=== PATIENT | female | born 1955 | race Caucasian/White ===

== ENCOUNTER → 2022-10-12 | Outpatient (CLI) | payer MEDICARE, BC, SELFPAY ==
--- NOTE | 2022-10-12 07:50 | MRI_ITS ---
We are attempting to reach an attending provider to discuss findings. An addendum with communication details will be sent when the communication is complete. EXAM: MR HEAD WITHOUT INTRAVENOUS CONTRAST CLINICAL INDICATION: R VISUAL FIELD DEFECT, R/O OLD CVA TECHNIQUE: Multiplanar and multisequence MR images of the brain were obtained without intravenous contrast. This report was created using Remerge report generation technology. COMPARISON: None. FINDINGS: BRAIN AND EXTRA-AXIAL SPACES: Small diffusion restriction in the right inferior occipital pole cortex is also visible on the T2 FLAIR sequence. This is suspicious for subacute ischemic infarct. Large old cortical based ischemic infarct with cystic encephalomalacia along the left posterior temporal lobe extending to the left lateral occipitotemporal lobe , left angular gyrus and a small portion of the left supramarginal gyrus. No intra- or extra-axial hemorrhage. No intracranial mass or mass effect. Posterior fossa structures are unremarkable. Basal cisterns are patent. SELLA: Unremarkable. Normal sella turcica, pituitary gland, infundibular stalk, optic chiasm and hypothalamus. AUDITORY SYSTEM: Unremarkable. The internal auditory canals are patent. BONES/JOINTS: Unremarkable. No discrete lytic or blastic abnormalities. SINUSES: Unremarkable as visualized. Clear. MASTOID AIR CELLS: Unremarkable as visualized. Clear. ORBITS: Unremarkable as visualized. Both globes, extraocular muscles, optic nerves and retrobulbar fat appear unremarkable. VASCULATURE: Unremarkable as visualized. Normal flow voids in the major intracranial circulation. MRI/Brain without Contrast IMPRESSION: 1. Small subacute ischemic infarct in the right inferior occipital pole. 2. Large old cortical based ischemic infarct with cystic encephalomalacia along the left posterior temporal lobe, left lateral occipitotemporal lobe, left angular gyrus and a small portion of the left supramarginal gyrus. This old ischemic infarct involves the optic radiation of the left intracranial visual pathway. Electronically Signed: Baldomero Keita MD at 9:44 EST ,
== END | disposition home or self-care (01) ==
LOC: MRI 07:47
PROVIDERS: PCP Family Medicine; Referring Provider Ophthalmology; Visit Provider Ophthalmology
DX: H53.461 Homonymous bilateral field defects, right side (principal)
CPT/HCPCS: 70551

== ENCOUNTER 2023-07-08 10:15 | Emergency (ER) | payer MEDICARE, BC, SELFPAY ==
[2023-07-08 10:16] VITALS: BP 146/78; PULSE 66; RESP 18; TEMP 36.2; O2SAT 100
--- NOTE | 2023-07-08 12:00 | CT_ITS ---
STUDY: CT BRAIN WITHOUT CONTRAST REASON FOR EXAM: Female, 68 years old. Head injury. History of epilepsy. RADIATION DOSAGE (If Supplied By Facility): CTDIvol = ( 47.06 ) mGy, DLP = ( 837.39 ) mGycm TECHNIQUE: Transaxial CT imaging of the brain was performed without administration of intravenous contrast material. Individualized dose optimization techniques were used for this CT. COMPARISON: Comparison is made with prior MRI of the brain dated October 12, 2022. FINDINGS: Normal soft tissue structures. There is hyperostosis frontalis internus. There is mild cerebral atrophy with widening of the extra-axial spaces and ventricular dilatation. Stable encephalomalacia in the left posterior parieto-occipital lobe. Normal basal ganglia and thalami. Normal brainstem. There is mild cerebellar atrophy. There is no intracranial hemorrhage. There are no findings of an acute ischemic infarction. Normal visualized paranasal sinuses. CT/Brain/Head without Contrast IMPRESSION: Chronic involutional changes of the brain. Stable encephalomalacia of the left posterior parieto-occipital lobe. Electronically Signed: David Todd MD at 12:58 EDT ,
--- NOTE | 2023-07-08 12:10 | ED.VIS.FALL ---
HPI HPI - Fall History of Present Illness Chief Complaint: Fall Occured/Mechanism Occurred: Today Mechanism/Context: Yes same level fall and Yes slip Pain/Injury Pain Location: head Quality of Pain: Aching Worsened by: Nothing Relieved by: Nothing Associated Symptoms Associated Symptoms: Negative for Parasthesias, Weakness, Loss of function, Inability to ambulate, Loss of consciousness or Amnesia Narrative Narrative: Patient presents with head injury that occurred today. Patient slipped getting out of the shower today and hit her head. Patient denies any loss of consciousness. Patient states she hit the left side of her head on the top. Patient takes aspirin but does not take any anticoagulants. Patient states her last tetanus was 1 to 2 years ago. Patient denies any visual changes. Patient denies any nausea or vomiting. Patient denies any neck or back pain. Patient denies any other injuries. Tetanus Immunization: <5 years [facility] Medical History (Updated 07/08/23 @ 14:[address] Anderson Vences, ) Seizures Sleep apnea Stroke/cerebrovascular accident Home Medications ascorbic acid-ascorbate sodium (vitamin C) 500 mg chewable tablet 500 mg PO BID 05/01/17 [History Last Taken 05/01/17 17:00] divalproex 500 mg tablet,extended release 24 hr 1,000 mg PO BID 05/01/17 [History Last Taken 05/01/17 17:00] rmkxqkqpqscr-Vb-mnjr-minerals (Multiple Vitamin, Womens tablet) 1 ea PO DAILY 05/01/17 [History Last Taken 05/01/17] oxcarbazepine 600 mg tablet (Trileptal) 900 mg PO BID 05/01/17 [History Last Taken 05/01/17 17:00] cefepime 1 gram solution for injection 2 g IV Q12H ##20 05/04/17 [Rx Last Taken Unknown] ciprofloxacin HCl 500 mg tablet 750 mg (1.5 x 500 mg) PO BID ##20 05/04/17 [Rx Last Taken Unknown] aspirin 81 mg chewable tablet (Nazia Chewable Low Dose Aspirin) 1 tab PO DAILY 07/08/23 [History Last Taken Unknown] rosuvastatin 10 mg tablet 10 mg PO DAILY 07/08/23 [History Last Taken Unknown] Allergy/AdvReac Type Severity Reaction Status Date / Time No Known Allergies Allergy Verified 07/08/23 10:20 Social History Smoking Status: Never smoker ROS ROS ED Constitutional Constitutional ED: Denies chills or fever(s) Eyes Eyes: Denies blurry vision or change in vision ENT ENT ED: Denies rhinorrhea or sore throat Cardiovascular Cardiovascular: Denies chest pain or palpitations Respiratory/Chest Respiratory/Chest: Denies cough or dyspnea Gastrointestinal Gastrointestinal: Denies nausea or vomiting Genitourinary Genitourinary ED: Denies dysuria or hematuria Musculoskeletal Musculoskeletal: Denies back pain or neck pain Integumentary Denies abscess or rash Neurologic Neurologic: Reports headache(s); Denies weakness Allergic/Immunologic Allergic/Immunologic ED: Denies mouth swelling or urticaria EXAM Physical Exam Const Vital Signs: 07/08/23 10:16 07/08/23 12:16 07/08/23 12:38 Temperature 97.1 F L Temperature Source Temporal Pulse Rate 66 Respiratory Rate 18 18 Respiratory Effort Normal Respiratory Pattern Normal Blood Pressure 146/78 H Blood Pressure Mean 100 Pulse Ox 100 Oxygen Delivery Method Room Air 07/08/23 14:08 Temperature Temperature Source Pulse Rate Respiratory Rate 16 Respiratory Effort Respiratory Pattern Blood Pressure 164/61 H Blood Pressure Mean 95 Pulse Ox Oxygen Delivery Method Positive well nourished and well developed General Appearance ED: well developed and NAD HEENT HEENT Narrative: There is a 11.5 cm full-thickness curvilinear laceration over the left parietal scalp. There is moderate gapping of the wound margins. There is no active bleeding noted. There is no bony crepitance or step-off. There are no foreign bodies noted. trauma Eyes PERRL and EOMs intact bilaterally Neck full ROM and supple Chest Wall inspection of chest normal and palpation of chest normal Resp normal respiratory effort and clear to auscultation bilaterally Cardio regular rate and regular rhythm GI non-tender Palpation: soft Extremity Extremity Narrative: There is mild tenderness over the lateral aspect of the right mid thigh. There is no edema or ecchymosis. There is no bony crepitance or step-off. There is good range of motion of the upper and lower extremities bilaterally. Strength is 5/5 bilaterally in the upper and lower extremities. There are no sensory deficits noted. Neuro oriented x3, CN's II-XII intact bilaterally, moves all extremities, no focal motor deficits and no sensory deficits noted Sensorium / Orientation: alert Motor Exam: strength 5/5 throughout Psych mental status grossly normal MDM MDM MDM Narrative Medical decision making narrative: Differential diagnosis includes intracranial bleeding, concussion, closed head injury, and scalp laceration. CT scan of the brain will be obtained to assess for intracranial bleeding. Patient and family are concerned that patient has disruption of her left knee prosthesis and would like to have that x-rayed. X-rays will be obtained to assess for fracture and displacement of the prosthetic parts of her total knee replacement. Radiography Diagnostic Testing: Clinical Impression(s) from Imaging Studies Brain CT 07/08/23 12:00 IMPRESSION: Chronic involutional changes of the brain. Stable encephalomalacia of the left posterior parieto-occipital lobe. Electronically Signed: David Todd MD at 12:58 EDT , Knee X-Ray 07/08/23 12:45 IMPRESSION: Status post total knee replacement. There is good alignment. Soft tissue swelling. Electronically Signed: David Todd MD at 13:02 EDT , CT scan of the brain was obtained. There are chronic involutional changes noted. There is no acute intracranial bleeding noted. This was interpreted by the radiologist and was also independently reviewed by myself. X-rays of the left knee were obtained. There are 4 views. On my independent interpretation, there is no acute fracture or dislocation. There is no dislocation of the prosthesis. Radiologist also interpreted the x-rays and agrees. Treatment and Re-Evaluation Narrative: Patient was advised of her findings. The scalp wound was cleaned and irrigated with copious amounts of normal saline. The wound was anesthetized with 1% lidocaine with epinephrine locally. The wound was explored. There were no foreign bodies. There is no skull fracture noted. The wound was closed with lety. Patient tolerated procedure well. Dressing was applied. Patient was given head injury instructions. Patient was instructed to ice and elevate the left knee. Patient was instructed to take Tylenol as needed for pain. Patient was instructed to follow-up with her primary care physician in 5 to 7 days. Patient understood and was agreeable with the plan. All questions were answered. Procedures Lacerations Left parietal scalp: Length: 11.5 cm Depth: Sub Q Shape: Linear Prep: Sterile Conditions and Chlorhexadine Laceration repair: Irrigated, Lidocaine with epi, Local and Wound explored Irrigated (ml): 100 Number of Sutures/[place]: 24 Suture Information: - (Lety) Discharge Plan Triage Chief Complaint: Fall ED Provider: Anderson Vences Dx/Rx/DC Orders Clinical Impression: Closed head injury, Contusion of left knee, initial encounter, Laceration of scalp Instructions: ED Head Injury (Adult), ED Laceration Scalp Stitches or [place] Prescriptions: No Action divalproex 500 MG tablet extended release 24 hr 1,000 mg PO BID Rx Instructions: takes at 0500 and 1700 every day oxcarbazepine [Trileptal] 600 MG tablet 900 mg PO BID Rx Instructions: takes at 0500 and 1700 every day Multiple Vitamin, Womens 1 EACH tablet 1 ea PO DAILY ascorbic acid-ascorbate sodium 500 MG tablet,chewable 500 mg PO BID cefepime 1 GM/10 ML recon soln 2 g IV Q12H Qty: 20 0RF Rx Instructions: DX: Pseudomonas L knee wound infxn w/new L TKR Sed rate, CBC, CRP and BMP weekly starting May [address] Holland, please routine Midline flushing and dressings ciprofloxacin HCl 500 MG tablet 750 mg PO BID Qty: 20 0RF rosuvastatin 10 mg tablet 10 mg PO DAILY Patient Comments: TAKE 1 TABLET BY MOUTH EVERYDAY AT BEDTIME aspirin [Nazia Chewable Aspirin] 81 mg tablet,chewable 1 tab PO DAILY Primary Care Provider: Red Peterson Referrals: Red Peterson MD [Primary Care Provider] - 7 Days for suture removal Disposition Disposition: Home, Self Care
[2023-07-08 12:16] VITALS: RESP 18
[2023-07-08 12:20] VITALS: BMI 42.1
--- NOTE | 2023-07-08 12:45 | RAD_ITS ---
STUDY: X-RAY - LEFT KNEE REASON FOR EXAM: Female, 68 years old. Injury/Pain TECHNIQUE: 4 view(s) of the knee. COMPARISON: Comparison is dated May 01, 2017. FINDINGS: Normal visualized distal femur. Normal visualized proximal tibia and fibula. Normal proximal tibiofibular articulation. Status post total knee replacement. There is good alignment. Soft tissue swelling. RAD/Knee 4 or More Views IMPRESSION: Status post total knee replacement. There is good alignment. Soft tissue swelling. Electronically Signed: David Todd MD at 13:02 EDT ,
[2023-07-08] MEDS: Acetaminophen 500 MG Tablet 1000 MG PO (14:01)
[2023-07-08 14:08] VITALS: BP 164/61; RESP 16
[2023-07-08] MEDS: Lidocaine 1% /Epi 1:100 (20ml) 20 ML Vial INFILT (16:36)
== END 2023-07-08 16:40 | disposition home or self-care (01) ==
PROVIDERS: Emergency Provider Emergency Medicine; PCP Family Medicine; Visit Provider Emergency Medicine
DX: S01.01XA Laceration without foreign body of scalp, initial encounter (principal); S80.02XA Contusion of left knee, initial encounter; W01.10XA Fall on same level from slipping, tripping and stumbling with subsequent striking against unspecified object, initial encounter; Z96.652 Presence of left artificial knee joint; Z79.82 Long term (current) use of aspirin; Z86.73 Personal history of transient ischemic attack (TIA), and cerebral infarction without residual deficits
CPT/HCPCS: 12004; 70450; 73564; 99284

== ENCOUNTER → 2023-09-03 | Outpatient (CLI) | payer MEDICARE, BC, SELFPAY ==
--- NOTE | 2023-09-03 08:02 | MRI_ITS ---
STUDY: MRI BRAIN WITHOUT CONTRAST REASON FOR EXAM: Female, 68 years old. MEMORY LOSS, ALTERED MENTAL STATUS, COGNITIVE DECLINE, H/O PRIOR CVA TECHNIQUE: Standardized multiplanar fat and water weighted pulse sequences were obtained. COMPARISON: MR 10/12/2022. HEMISPHERES, CEREBELLUM AND BRAINSTEM: There is an old left temporal occipital infarct with cystic encephalomalacia measuring 7.39 cm AP by 3.1 cm transverse by 5.29 cm craniocaudal. There is underlying moderate cortical and central atrophy. Extending medially there is noncystic encephalomalacia extending to the atrium of the left lateral ventricle. There is moderate chronic microvascular ischemic change in the periventricular white matter. There is moderate cortical and central atrophy. There is mild cerebellar atrophy. The previously visualized small subacute ischemic infarct in the inferior right occipital lobe has evolved and are normal manner. There is a focus of encephalomalacia seen at this site measuring 2 cm AP by 0.8 cm transverse. PITUITARY: Infundibulum and pituitary have normal configuration. Midline structures appear normal. VESSELS: 1. There are normal flow voids noted in the great vessels at the skull base ORBITS AND PARANASAL SINUSES: 1. Both globes, extraocular muscles, optic nerves and retrobulbar fat appear unremarkable. 2. Paranasal sinuses are clear. BONY ELEMENTS: Bony elements of the cranial vault, facial skeleton and skull base have normal appearance. SCALP AND SOFT TISSUES: Normal appearance of the soft tissues of the scalp and the visualized face OTHER: None MRI/Brain without Contrast IMPRESSION: Normal evolution of the inferior right occipital infarct which now appears chronic. This measures 2 cm AP by 0.8 cm transverse. Large left temporal occipital infarct which is chronic with cystic encephalomalacia malacia and noncystic encephalomalacia extending medially. Moderate chronic microvascular ischemic change. Moderate cortical and central atrophy. Electronically Signed: Red Lang MD at 9:21 EDT ,
== END | disposition home or self-care (01) ==
LOC: MRI 07:46
PROVIDERS: PCP Family Medicine; Referring Provider Psychiatry & Neurology Clinical Neurophysiology; Visit Provider Psychiatry & Neurology Clinical Neurophysiology
DX: R41.82 Altered mental status, unspecified (principal)
CPT/HCPCS: 70551

== ENCOUNTER 2025-02-14 11:41 | Inpatient (IN) | payer MEDICARE, SELFPAY ==
[2025-02-14] VITALS (9 sets, daily range): BP systolic 117–166; BP diastolic 50–102; PULSE 72–95; RESP 13–18; TEMP 36.2–37.7; O2SAT 94–100; BMI 39.9; BMI 38.9
--- NOTE | 2025-02-14 11:52 | EX.ED.DYSGE1 ---
HPI History of Present Illness Chief Complaint: Confusion [facility] Medical History (Updated 02/14/25 @ 13:[address] Anabell Baum MD) Seizures Stroke/cerebrovascular accident Sleep apnea Home Medications ?Medication ?Instructions ?Recorded ?Last Taken ?Type divalproex 500 mg tablet,extended 1,000 mg PO BID 05/01/17 02/14/25 History release 24 hr oxcarbazepine 600 mg tablet 900 mg PO BID 05/01/17 02/14/25 History (Trileptal) aspirin 81 mg chewable tablet 1 tab PO DAILY 07/08/23 02/14/25 History (Nazia Chewable Low Dose Aspirin) rosuvastatin 10 mg tablet 10 mg PO QHS 07/08/23 02/13/25 History Allergy/AdvReac Type Severity Reaction Status Date / Time No Known Allergies Allergy Verified 02/14/25 12:23 Social History (Updated 02/14/25 @ 11:46 by Clarice Bass) household members: spouse housing: house Smoking Status: Never smoker EXAM Physical Exam Const Vital Signs: 02/14/25 11:42 02/14/25 11:45 02/14/25 12:30 Temperature 99.5 F H 99.5 F H 99.3 F H Temperature Source Oral Oral Oral Pulse Rate 80 80 77 Respiratory Rate 13 13 15 Blood Pressure 117/90 H 117/90 H 140/50 H Blood Pressure Mean 99 99 80 Pulse Ox 94 94 94 Oxygen Delivery Method Room Air Room Air Room Air 02/14/25 13:00 Temperature 99.0 F Temperature Source Oral Pulse Rate 76 Respiratory Rate 13 Blood Pressure 137/66 H Blood Pressure Mean 89 Pulse Ox 95 Oxygen Delivery Method Room Air MDM MDM MDM Narrative Medical decision making narrative: HISTORY OF PRESENT ILLNESS: 70-year-old female presents with concern for altered mental status. Per EMS called secondary to confusion and cold-like symptoms. Also notes cough. Per patient became confused this morning after breakfast. No report of seizure or falls. No report recent illnesses. notes he was just getting over a cold and thinks he may have a cold. There is no reported chest pain, abdominal pain, vomiting or diarrhea. No trouble urinating reported. REVIEW OF SYSTEMS: Unable to obtain reliable review of system secondary to patient's altered mental status PHYSICAL EXAM: Nursing triage notes reviewed, Vital signs reviewed Constitutional: please see mdm HENT: MMM Eyes: Pupils equal round and reactive to light, Extraocular muscles intact Neck: No stridor, no JVD, full neck ROM Lungs: Clear to auscultation, No wheezing or rales. No increased work of breathing, no conversational dyspnea, no accessory muscle use, no nasal flaring. No respiratory distress noted Heart: Regular rate and rhythm, No murmurs, No rubs and No gallops, 2+ distal pulses (radial, femoral, posterior tibial) in all extremities Abdomen: Soft, there is no tenderness, rigidity, rebound or guarding, no obvious peritoneal signs, no palpable pulsatile abdominal masses, no auscultated abdominal bruit : No CVAT Extremities: No edema Neuro: Alert, oriented to person but not place or time of my exam, no lateralizing focal deficits, cranial nerves II through XII intact, intact strength in all present extremities. Intact sensation to light touch in all present extremities, 2+ reflexes bilateral patella tendons. Skin: No rash or lesions noted MEDICAL DECISION MAKING: Chief Complaint: Altered mental status External records reviewed: Reviewed prior imaging studies: Reviewed brain MRI from 2022 which showed inferior right occipital infarct Factors affecting care: CVA, seizures Social determinants of health: none History obtained from others: EMS, Consults: Internal Medicine (Dr. Baum) [facility] Narrative: The patient was initially borderline febrile with a temperature 99.5 saturating 94% room air otherwise hemodynamically stable. Exam with AMS. Patient appeared diffuse encephalopathic. No focal neurologic deficits. No sign of trauma. I considered the following differential diagnosis: ICH, anemia, electro disturbance, UTI ALL IMAGES (IF OBTAINED) HAVE BEEN PERSONALLY REVIEWED AND INTERPRETED BY MYSELF. EKG with normal sinus rhythm rate of 72, normal axis, no intervals, no STEMI CT scan of the head shows no evidence of obvious intracranial abnormality CBC without leukocytosis, no anemia or thrombocytopenia BMP without evidence of significant electrolyte abnormalities, no anion gap, no acute kidney injury. Urinalysis shows no evidence of urinary inflammation suggestive of UTI COVID/RSV/flu test positive for COVID-19 the likely etiology of the patient's altered mental status and fever I have personally reviewed the patient's chest x-ray. Chest x-ray is unremarkable for pulmonary edema, pneumothorax, pneumonia or focal cardiopulmonary abnormality. Initial lactate elevated consistent with endorgan hypoperfusion. Will give 2 L normal saline bolus and repeat lactate Initially gave Tylenol for fever which improved the patient's temperature Given altered mental status and signs of COVID-19 admit the patient. Discussed with hospitalist. The patient and/or family, caregivers express understanding. The patient and/or family, caregivers agrees with the plan. Shared decision making: I will have a discussion with the patient and or visitors regarding risk/benefits of further testing or admission. They will be made aware of of the risk/benefits inherent in this decision they will be given the opportunity to voice understanding. Total critical care time today provided was at least 0 minutes. This excludes separately billable procedures. Critical care time (if documented) is secondary to the patient having high probability of clinically significant/life threatening deterioration in the patient's condition which required my urgent intervention. Impression: 1. COVID-19 2. Altered mental status Dispo: Admit This note was generated with [employer] dictation software. It may contain incorrect words, spelling, and punctuation that were not noted in review of the chart prior to signing. Lab Data Labs: Laboratory Results - last 24 hr 02/14/25 02/14/25 11:45 12:09 WBC 8.1 RBC 3.91 L Hgb 12.6 Hct 38.1 MCV 97.4 MCH 32.2 H MCHC 33.1 RDW Std Deviation 51.2 H RDW Coeff of Margie 14.5 Plt Count 347 MPV 9.4 Immature Gran % (Auto) 0.500 Neut % (Auto) 72.5 H Lymph % (Auto) 13.2 L [place] % (Auto) 13.2 H Eos % (Auto) 0.4 Baso % (Auto) 0.2 Absolute Neuts (auto) 5.9 Absolute Lymphs (auto) 1.07 Nucleated RBC % 0 Sodium 136 Potassium 4.0 Chloride 101 Carbon Dioxide 23.3 Anion Gap 12 BUN 15 Creatinine 0.50 L Estim Creat Clear Calc 78.56 Est GFR (MDRD) Non-Af 102 BUN/Creatinine Ratio 30.9 H Glucose 130 H Lactic Acid 2.7 H* Calcium 9.2 Total Bilirubin 0.31 Direct Bilirubin 0.17 AST 29 ALT 10 Alkaline Phosphatase 72 Total Protein 6.8 Albumin 3.5 Globulin 3.3 Urine Color Yellow Urine Clarity Sl. Cloudy Urine pH 5.0 Ur Specific [place] 1.020 Urine Protein 100 H Urine Glucose (UA) Normal Urine Ketones 5 H Urine Occult Blood 10 H Urine Nitrite Negative Urine Bilirubin Negative Urine Urobilinogen 1 H Ur Leukocyte Esterase 25 H Urine RBC 0 SEEN Urine WBC 0-5 SEEN Ur Squamous Epith Cells 0 SEEN Urine Bacteria 0 SEEN Urine Mucus 3+ Radiography Diagnostic Testing: Clinical Impression(s) from Imaging Studies Brain CT 02/14/25 12:40 IMPRESSION: Stable examination. No acute abnormality is seen. Reading Location: [facility]--1 Chest X-Ray 02/14/25 12:40 IMPRESSION: No Acute Findings. Reading Location: [facility]1 Discharge Plan Disposition Disposition: Acute Care Hospital [facility] Discharge Date/Time: 02/14/25 13:42
--- NOTE | 2025-02-14 11:58 | EKG12_ITS ---
Test Reason : Blood Pressure : */* mmHG Vent. Rate : 72 BPM Atrial Rate : 72 BPM P-R Int : 172 ms QRS Dur : 86 ms QT Int : 402 ms P-R-T Axes : 67 48 78 degrees QTcB Int : 440 ms Normal sinus rhythm Nonspecific ST and T wave abnormality Abnormal ECG Confirmed by MARLO SKINNER, LARON ([id number]), editor newspaper VEGA SNYDER ([id number]) on 02/15/2025 8:00:11 AM Referred By: Alejandro Wilkins Confirmed By: LARON SELLERS MD
[2025-02-14 12:10] LABS: Absolute Lymphocyte Count 1.07 X10^3/uL (0.83-4.51); Absolute Neutrophil Count 5.9 X10^3/uL (2.0-7.7); Basophil# 0.02 X10^3/uL; Basophil% 0.2 % (0-1); Eosinophil# 0.03 X10^3/uL; Eosinophils% 0.4 % (0-5); Hematocrit 38.1 % (37-47); Hemoglobin 12.6 g/dL (12.0-15.0); Lymphocyte # 1.07 X10^3/ul (0.83-4.51); Lymphocyte % 13.2 % (19-41); Mean Corp Hgb Conc 33.1 g/dL (32-36); Mean Corpuscular Hgb 32.2 pg (27.0-32.0); Mean Corpuscular Volume 97.4 fL (81-99); Mean Platelet Vol. 9.4 fl (6.2-12.0); Monocyte# 1.07 X10^3/uL; Monocyte% 13.2 % (0-10); NRBC Flagged by Analyzer 0 % (0-5); Neutrophil % 72.5 % (47-70); Platelet Count 347 K/mm3 (150-450); RBC Distribution Width CV 14.5 % (11.6-14.6); RBC Distribution Width SD 51.2 fl (35.1-43.9); Red Blood Count 3.91 M/mm3 (4.2-5.4); White Blood Count 8.1 K/mm3 (4.4-11.0)
[2025-02-14 12:14] LABS: Bacteria 0 SEEN /hpf (None Seen); Squamous Epithelial Cells - UA 0 SEEN /hpf (5-10)
[2025-02-14 12:18] LABS: Color, Urine Yellow (Yellow); Glucose, Dipstick Normal (Normal); Ketone-Dipstick 5 mg/dl (Negative); Leukocyte Esterase-Dipstick 25 /ul (Negative); Nitrite-Dipstick Negative (Negative); Occult Blood-Urine 10 /ul (Negative); Protein-Dipstick 100 mg/dl (Negative); Urine Bilirubin Dipstick Negative (Negative); Urine Clarity Sl. Cloudy (Clear); Urine Urobilinogen 1 mg/dl (Normal)
[2025-02-14] MEDS: Acetaminophen 325 MG Tablet 650 MG PO ×2 (12:19→21:47)
[2025-02-14] MEDS: 0.9% Normal Saline (500mL Bag) 500 ML 1000 ML IV (12:19)
[2025-02-14 12:26] LABS: Mucous, Urine 3+ /hpf (<or=2+)
[2025-02-14 12:27] LABS: Red Blood Cells-Urine 0 SEEN /hpf (0-5); White Blood Cells 0-5 SEEN /hpf (0-5)
[2025-02-14 12:31] LABS: AST(SGOT) 29 U/L (<=31); Alanine Aminotransfer ALT/SGPT 10 U/L (<=34); Albumin, Serum 3.5 g/dL (3.4-4.8); Alkaline Phosphatase 72 U/L (35-104); Anion Gap 12 (5-15); BUN 15 mg/dL (4-19); BUN/Creat Ratio 30.9 RATIO (10-20); Bilirubin, Direct 0.17 mg/dL (0.00-0.30); Calcium,Total 9.2 mg/dL (7.6-11.0); Carbon Dioxide 23.3 mmol/L (21.0-32.0); Chloride 101 mmol/L (98-108); EST Glomerular Filtration Rate 102 (>60); Estimated Creatinine Clearance 78.56 ml/min (50-250); Globulin 3.3 g/dL (2.2-4.2); Glucose 130 mg/dL (70-99); Protein, Total 6.8 g/dL (5.9-8.4); Sodium Level 136 mmol/L (133-145); Total Bilirubin 0.31 mg/dL (0.00-1.30)
--- NOTE | 2025-02-14 12:40 | RAD_ITS ---
PROCEDURE: CHEST 1 VIEW (PORTABLE) 02/14/2025 REASON FOR EXAM: COUGH TECHNIQUE: Frontal view of the chest. COMPARISON: None FINDINGS: Hardware: EKG electrodes are seen. Heart: The heart size is normal. Lungs: The lungs are clear. Bones: Degenerative changes are identified within the thoracic spine. RAD/Chest 1 View (Portable) IMPRESSION: No Acute Findings. Reading Location: [place] [id number]
--- NOTE | 2025-02-14 12:40 | CT_ITS ---
PROCEDURE: BRAIN/HEAD WITHOUT CONTRAST 02/14/2025 REASON FOR EXAM: AMS History of seizures. Confusion. TECHNIQUE: Multiple axial tomographic images were obtained without intravenous contrast administration. Coronal and sagittal reconstruction was obtained as well. COMPARISON: Comparison is made with prior study July 08, 2023. FINDINGS: Mild cerebral atrophy. There is evidence of atrophy of the left cerebellum. Stable encephalomalacia in the posterior left parietal occipital lobes. No new acute abnormality is seen. Hyperostosis frontalis interna. CT/Brain/Head without Contrast IMPRESSION: Stable examination. No acute abnormality is seen. [facility]
--- NOTE | 2025-02-14 13:07 | PCM.HP.STD ---
HPI - General General Date of Admission: 02/14/25 Date of Service: 02/14/25 Chief Complaint: altered mental status HPI Narrative RICHAR BELTRAN, is a 70 F with a past medical history as outlined living seizure disorder was admitted through the ED on 02/14/2025 with complaint of altered mental status. According to her she was well until this morning when he found her confused right after she ate breakfast. He had not noticed that she had any seizure episodes. He had not seen her have any recent symptoms and denied any fever or chills, cough, shortness of breath, nausea or vomiting. Review of systems otherwise negative. Could not get much history from the patient due to the altered mental status. Vitals in the ED were blood pressure 140/50, pulse rate of 77, respiratory rate of 15 and temperature of 99.3 Fahrenheit. Oxygen saturation was 94% on room air. CBC showed WBC of 8.1 with hemoglobin of 4.6 and platelets of 347. Chemistry was largely unremarkable apart from lactic acid of 2.7. Creatinine was 0.5. Chest x-ray showed no acute cardiopulmonary pathology. Urinalysis showed no evidence of UTI. CT of the brain showed no acute intracranial pathology and showed chronic evidence of mild cerebral atrophy and atrophy of the left cerebellum as well as stable encephalomalacia in the posterior left parietal occipital lobes. She has been admitted to be managed for acute encephalopathy likely due to COVID. She did test positive for COVID. [facility] Medical History Seizures Stroke/cerebrovascular accident Sleep apnea Home Medications ?Medication ?Instructions ?Recorded ?Last Taken ?Type divalproex 500 mg tablet,extended 1,000 mg PO BID 05/01/17 02/14/25 History release 24 hr oxcarbazepine 600 mg tablet 900 mg PO BID 05/01/17 02/14/25 History (Trileptal) aspirin 81 mg chewable tablet 1 tab PO DAILY 07/08/23 02/14/25 History (Nazia Chewable Low Dose Aspirin) rosuvastatin 10 mg tablet 10 mg PO QHS 07/08/23 02/13/25 History Allergy/AdvReac Type Severity Reaction Status Date / Time No Known Allergies Allergy Verified 02/14/25 12:23 Social History (Updated 02/14/25 @ 11:46 by Clarice Bass) household members: spouse housing: house Smoking Status: Never smoker Vital Signs Vital Signs Vital Signs: 02/14/25 11:42 02/14/25 11:45 02/14/25 12:30 Temperature 99.5 F H 99.5 F H 99.3 F H Temperature Source Oral Oral Oral Pulse Rate 80 80 77 Respiratory Rate 13 13 15 Blood Pressure 117/90 H 117/90 H 140/50 H Blood Pressure Mean 99 99 80 Pulse Ox 94 94 94 Oxygen Delivery Method Room Air Room Air Room Air Weight Weight: 232 lb 5.875 oz Body Mass Index (BMI) 39.9 Physical Exam Const alert and no apparent distress Orientation / Consciousness: confused HEENT normocephalic, head/scalp atraumatic, hearing grossly normal bilaterally and moist oral mucous membranes Mouth: oral and palatal mucosa normal Eyes PERRL, EOMs intact bilaterally and conjunctivae normal Neck no lymphadenopathy, supple and no JVD Resp normal respiratory effort, no retractions, no use of accessory muscles and clear to auscultation bilaterally Cardio regular rate, regular rhythm, S1 normal heart sound, S2 normal heart sound and no murmurs Extremity normal to inspection, full ROM and no clubbing, cyanosis or edema Neuro CN's II-XII intact bilaterally, moves all extremities and no focal motor deficits Neuro Narrative: confused Sensorium / Orientation: awake and alert Motor Exam: strength 5/5 throughout Psych Psych Narrative: confused Results Lab / Micro Data 02/14/25 11:45 02/14/25 11:45 Labs: Laboratory Results - last 24 hr 02/14/25 11:45: WBC 8.1, RBC 3.91 L, Hgb 12.6, Hct 38.1, MCV 97.4, MCH 32.2 H, MCHC 33.1, RDW Std Deviation 51.2 H, RDW Coeff of Margie 14.5, Plt Count 347, MPV 9.4, Immature Gran % (Auto) 0.500, Neut % (Auto) 72.5 H, Lymph % (Auto) 13.2 L, [place] % (Auto) 13.2 H, Eos % (Auto) 0.4, Baso % (Auto) 0.2, Absolute Neuts (auto) 5.9, Absolute Lymphs (auto) 1.07, Nucleated RBC % 0, Sodium 136, Potassium 4.0, Chloride 101, Carbon Dioxide 23.3, Anion Gap 12, BUN 15, Creatinine 0.50 L, Estim Creat Clear Calc 78.56, Est GFR (MDRD) Non-Af 102, BUN/Creatinine Ratio 30.9 H, Glucose 130 H, Calcium 9.2, Total Bilirubin 0.31, Direct Bilirubin 0.17, AST 29, ALT 10, Alkaline Phosphatase 72, Total Protein 6.8, Albumin 3.5, Globulin 3.3 02/14/25 12:09: Lactic Acid 2.7 H*, Urine Color Yellow, Urine Clarity Sl. Cloudy, Urine pH 5.0, Ur Specific Balm 1.020, Urine Protein 100 H, Urine Glucose (UA) Normal, Urine Ketones 5 H, Urine Occult Blood 10 H, Urine Nitrite Negative, Urine Bilirubin Negative, Urine Urobilinogen 1 H, Ur Leukocyte Esterase 25 H, Urine RBC 0 SEEN, Urine WBC 0-5 SEEN, Ur Squamous Epith Cells 0 SEEN, Urine Bacteria 0 SEEN, Urine Mucus 3+ Micro: Microbiology 02/14/25 12:09 Mucosa - Nose SARS-CoV-2, Influenza & RSV (PCR) - Final SARS-CoV-2 (COVID 19 PCR) Imaging Radiology Impression Brain CT 02/14/25 12:40 IMPRESSION: Stable examination. No acute abnormality is seen. Reading Location: [facility]--1 Chest X-Ray 02/14/25 12:40 IMPRESSION: No Acute Findings. Reading Location: [facility]-IR-1 Assessment & Plan Assessment/Plan (1) COVID: PLAN: Plan #Acute encephalopathy Admit to [facility]. Was admitted with a complaint of altered mental status which started this morning. Has no focal weakness. CT of the brain showed no acute intracranial pathology. Chest x-ray was also not significant for any acute pathology. Respiratory panel was positive for COVID. Lactic acid was 2.7. Hydrate gently with IV fluids. Will hold off on starting steroids remdesivir as patient is on room air. I think it is prudent to get an MRI of the brain and CTA head and neck also to rule out a stroke in light of patient's history of strokes. Continue PO aspirin and statin PT OT consult. Fall precautions. #Lactic acidosis: Hydrate gently with IV fluids and trend to see if it improves. #Hyperlipidemia: On statin #History of seizure disorder: No evidence of seizure prior to admission. On valproic acid and Trileptal DVT prophylaxis: Lovenox CODE STATUS:full code Patient and her counseled extensively about different types of CODE STATUS including full code, DNR CCA and DNR CCA. Pateint is quite confused and so I am not sure she fully understands the discussion about code status. Her who was present and is her POA selects for patient to be full code. Total vyli-xl-horl time 16 minutes. Charges/Coding Visit Charges Inpatient E&M: 11732 Init Hosp L2 Procedures Hospitalists Procedures: 99590 Advncd Care Plan 30 Min
[2025-02-14] MEDS: 0.9% Normal Saline (1000mL) 1,000 ML 999 ML IV (13:22)
[2025-02-14 13:23] LABS: Lactic Acid 2.7 mmol/L (0.0-2.0)
[2025-02-14 13:49] LABS: Valproic Acid (Depakene) Level 96 ug/mL (50-100)
--- NOTE | 2025-02-14 13:49 | MRI_ITS ---
EXAM: Brain MRI with/without contrast CLINICAL HISTORY: 70-year-old female, stroke-like symptoms: Altered mental status and confusion, COVID positive. COMPARISON: Same day CT head, CTA head and neck. TECHNIQUE: MRI of the brain was performed according to standard departmental protocol utilizing: Sagittal and axial T1, axial FLAIR, fat saturated fast spin echo axial T2, Susceptibility, Perfusion, diffusion , and post intravenous contrast axial, and coronal T1-weighted image were obtained. FINDINGS: Large, chronic area of encephalomalacia within the left posterior occipital parietal region, compatible with prior infarct. There is no evidence of acute intracranial bleed or focal infarction. There is no midline shift, herniation, or extra-axial collection. No area of restricted diffusion are identified on DWI images. The ventricles, sulci, and cisterns are age-appropriate in size. Scattered, age- appropriate T2 hyperintense signal throughout the white matter. No abnormal T2 bright signal in the white matter is identified. The basal ganglia, eli, pituitary, corpus callosum and cerebellum appear normal. Mild mucosal thickening of the bilateral maxillary sinuses. The visualized paranasal sinuses, mastoids, and orbits are otherwise unremarkable. Prior ocular lens replacements. The flow voids of the major intracranial vessels are patent. The visualized extracranial structures, within limits of technique, are not otherwise remarkable. No abnormal area of contrast enhancement on postcontrast imaging. MRI/Brain W/WO Contrast IMPRESSION: 1. No acute finding. No abnormal area of contrast enhancement on postcontrast i maging. 2. Chronic area of encephalomalacia within the left posterior occipital parieta l region, compatible with prior infarct. 3. Mild, age-appropriate white matter disease. Reading Location: [id number]
--- NOTE | 2025-02-14 14:00 | CT_ITS ---
PROCEDURE: CTA HEAD AND NECK W/ CONTRAST 02/14/2025 REASON FOR EXAM: STROKE LIKE SYMPTOMS TECHNIQUE: CTA imaging of the head and neck from the aortic arch to the skull vertex with intravenous contrast. 3D reconstructions. Coronal and Sagittal reconstruction series were provided. CONTRAST: Isovue 370 VOLUME: 100mL One or more dose reduction techniques were used (e.g., Automated exposure control, adjustment of the mA and/or kV according to patient size, use of iterative reconstruction technique). RADIATION DOSE SUMMARY: CTDlvol: 25 mGy DLP: 695.6 mGycm COMPARISON: Comparison is made with prior CT scan of the head done earlier in the day. FINDINGS: Aortic Arch: Normal size and branching pattern. Mild atherosclerotic plaque. Brachiocephalic and Subclavians: Unremarkable RIGHT Carotid: Right CCA: Unremarkable. Right ICA: Unremarkable. Right ECA: Unremarkable. LEFT Carotid: Left CCA: Unremarkable. Left ICA: Minimal calcific plaque at the origin of left internal carotid artery. Maximum stenosis (NASCET): Less than 5% % Left ECA: Unremarkable. Vertebrals: Dominant left vertebral artery. RIGHT Vertebral: Small right vertebral artery. LEFT Vertebral: Dominant left vertebral artery. Aneurysm or avm: No intracranial aneurysms or large vascular malformations are identified. Anterior cerebral arteries: Unremarkable: Middle cerebral arteries: Unremarkable. Basilar artery: Unremarkable. Posterior cerebral arteries: Unremarkable. Other major branches of the posterior circulation: Unremarkable. Major venous structures: Unremarkable. Other findings: Neck: No lymphadenopathy. Lungs: Bones: CT/CTA Head AND Neck W/ Contrast IMPRESSION: Minimal calcific plaque at the origin of the left internal carotid artery. Reading Location: [place] [address]
--- NOTE | 2025-02-14 14:17 | NURSING ---
talked with Maurilio parking enforcement officer updated pt in CT however MRI is requesting to take patient after CT is completed, but needs MRI questionaire done and pt not on unit. Also updated Maurilio of [employer] for MRI and waiting on bed assignment on PCU from warehouser.
[2025-02-14] MEDS: 0.9% Normal Saline (1000mL) 1,000 ML 125 ML IV (16:24)
--- NOTE | 2025-02-14 16:25 | EKG12_ITS ---
Test Reason : ARRYTH Blood Pressure : */* mmHG Vent. Rate : 75 BPM Atrial Rate : 75 BPM P-R Int : 172 ms QRS Dur : 86 ms QT Int : 414 ms P-R-T Axes : 17 35 56 degrees QTcB Int : 462 ms Normal sinus rhythm Nonspecific ST and T wave abnormality Abnormal ECG When compared with ECG of 14-Feb-2025 12:14, MANUAL COMPARISON REQUIRED DATA IS UNCONFIRMED Confirmed by MARLO SKINNER, LARON (), order editor VEGA SNYDER ([id number]) on 02/15/2025 7:59:04 AM Referred By: Alejandro Wilkins Confirmed By: LARON SELLERS MD
[2025-02-14 17:02] LABS: Lactic Acid 1.4 mmol/L (0.0-2.0)
[2025-02-14] MEDS: Divalproex (ER) 500 MG Tablet 1000 MG PO (18:44)
[2025-02-14] MEDS: OXcarbazepine 300 MG Tablet 900 MG PO (18:45)
[2025-02-14] MEDS: Ipratropium/Albuterol Sulfate 3 ML AMPUL.NEB INHALATION (19:05)
[2025-02-14] MEDS: Atorvastatin Calcium 20 MG Tablet PO (21:32)
[2025-02-15] VITALS (8 sets, daily range): BP systolic 150–177; BP diastolic 68–101; PULSE 72–92; RESP 16–20; TEMP 36.7–37.2; O2SAT 91–97
[2025-02-15] MEDS: Ipratropium/Albuterol Sulfate 3 ML AMPUL.NEB INHALATION ×4 (01:10→20:57)
[2025-02-15] MEDS: 0.9% Normal Saline (1000mL) 1,000 ML 125 ML IV (05:06)
[2025-02-15] MEDS: Divalproex (ER) 500 MG Tablet 1000 MG PO ×2 (05:06→16:51)
[2025-02-15] MEDS: OXcarbazepine 300 MG Tablet 900 MG PO ×2 (05:06→16:51)
[2025-02-15 06:02] LABS: Absolute Lymphocyte Count 1.69 X10^3/uL (0.83-4.51); Absolute Neutrophil Count 5.4 X10^3/uL (2.0-7.7); Basophil# 0.04 X10^3/uL; Basophil% 0.5 % (0-1); Hematocrit 34.6 % (37-47); Hemoglobin 11.8 g/dL (12.0-15.0); Lymphocyte # 1.69 X10^3/ul (0.83-4.51); Lymphocyte % 19.5 % (19-41); Mean Corp Hgb Conc 34.1 g/dL (32-36); Mean Corpuscular Hgb 32.6 pg (27.0-32.0); Mean Corpuscular Volume 95.6 fL (81-99); Mean Platelet Vol. 9.3 fl (6.2-12.0); Monocyte# 1.52 X10^3/uL; Monocyte% 17.6 % (0-10); NRBC Flagged by Analyzer 0 % (0-5); Neutrophil # 5.36 X10^3/uL (2.7-7.7); Neutrophil % 61.9 % (47-70); POSITIVE DIFFERENTIAL YES; Platelet Count 303 K/mm3 (150-450); RBC Distribution Width CV 14.1 % (11.6-14.6); RBC Distribution Width SD 49.6 fl (35.1-43.9); Red Blood Count 3.62 M/mm3 (4.2-5.4); White Blood Count 8.7 K/mm3 (4.4-11.0)
[2025-02-15 06:10] LABS: Differential Indicated SCAN CRITERIA MET
[2025-02-15 06:28] LABS: Anion Gap 10 (5-15); BUN 11 mg/dL (4-19); BUN/Creat Ratio 30.5 RATIO (10-20); Calcium,Total 8.6 mg/dL (7.6-11.0); Carbon Dioxide 23.9 mmol/L (21.0-32.0); Chloride 99 mmol/L (98-108); Cholesterol 141 mg/dL (<=200); Creatinine, Serum 0.35 mg/dL (0.70-1.20); EST Glomerular Filtration Rate 111 (>60); Estimated Creatinine Clearance 78.56 ml/min (50-250); Glucose 96 mg/dL (70-99); High Density Lipoprotein 71 mg/dL; Low Density Lipoprotein Calc. 59 mg/dL; Potassium 3.4 mmol/L (3.3-5.1); Sodium Level 134 mmol/L (133-145); Triglycerides 53 mg/dL; Very Low Density Lipoprotein 11 mg/dL (5-40); cholesterol:hdl ratio screen 1.98
[2025-02-15 08:27] LABS: Platelet Estimate A (ADEQ); Polychromasia 1+
[2025-02-15 08:29] LABS: Ovalocyte 1+
[2025-02-15] MEDS: Aspirin 81 MG TAB.CHEW PO (08:55)
--- NOTE | 2025-02-15 10:20 | PN_ITS ---
Subjective Subjective Patient seen and examined. She had no complaints. She remains on room air. Review of systems is otherwise negative. MRI of the brain was negative for stroke. Objective Data Objective Data Vital Signs: Vital Signs Temp Pulse Resp BP Pulse Ox O2 Del Method 98.2 F 85 18 177/68 H 97 Room Air 02/15/25 08:50 02/15/25 08:50 02/15/25 08:50 02/15/25 08:50 02/15/25 08:50 02/15/25 09:00 Oxygen Delivery Method Room Air Weight: 232 lb 5.875 oz Body Mass Index (BMI) 38.9 Intake & Output: Intake and Output for Last 24 Hours 02/13/25 02/14/25 02/15/25 23:59 23:59 23:59 Intake Total 1750 / 1990 1240 / 1240 Output Total 300 / 850 550 / 550 Balance 1450 / 1140 690 / 690 Lab / Micro Data 02/15/25 05:42 02/15/25 05:42 Labs: Laboratory Results - last 24 hr 02/14/25 11:45: WBC 8.1, RBC 3.91 L, Hgb 12.6, Hct 38.1, MCV 97.4, MCH 32.2 H, MCHC 33.1, RDW Std Deviation 51.2 H, RDW Coeff of Margie 14.5, Plt Count 347, MPV 9.4, Immature Gran % (Auto) 0.500, Neut % (Auto) 72.5 H, Lymph % (Auto) 13.2 L, [place] % (Auto) 13.2 H, Eos % (Auto) 0.4, Baso % (Auto) 0.2, Absolute Neuts (auto) 5.9, Absolute Lymphs (auto) 1.07, Nucleated RBC % 0, Sodium 136, Potassium 4.0, Chloride 101, Carbon Dioxide 23.3, Anion Gap 12, BUN 15, Creatinine 0.50 L, Estim Creat Clear Calc 78.56, Est GFR (MDRD) Non-Af 102, BUN/Creatinine Ratio 30.9 H, Glucose 130 H, Calcium 9.2, Total Bilirubin 0.31, Direct Bilirubin 0.17, AST 29, ALT 10, Alkaline Phosphatase 72, Total Protein 6.8, Albumin 3.5, Globulin 3.3 02/14/25 12:09: Lactic Acid 2.7 H*, Urine Color Yellow, Urine Clarity Sl. Cloudy, Urine pH 5.0, Ur Specific Babb 1.020, Urine Protein 100 H, Urine Glucose (UA) Normal, Urine Ketones 5 H, Urine Occult Blood 10 H, Urine Nitrite Negative, Urine Bilirubin Negative, Urine Urobilinogen 1 H, Ur Leukocyte Esterase 25 H, Urine RBC 0 SEEN, Urine WBC 0-5 SEEN, Ur Squamous Epith Cells 0 SEEN, Urine Bacteria 0 SEEN, Urine Mucus 3+ 02/14/25 12:30: Valproic Acid 96 02/14/25 16:16: Lactic Acid 1.4 02/15/25 05:42: WBC 8.7, RBC 3.62 L, Hgb 11.8 L, Hct 34.6 L, MCV 95.6, MCH 32.6 H, MCHC 34.1, RDW Std Deviation 49.6 H, RDW Coeff of Margie 14.1, Plt Count 303, MPV 9.3, Immature Gran % (Auto) 0.500, Neut % (Auto) 61.9, Lymph % (Auto) 19.5, [place] % (Auto) 17.6 H, Eos % (Auto) 0.0, Baso % (Auto) 0.5, Absolute Neuts (auto) 5.4, Absolute Lymphs (auto) 1.69, Nucleated RBC % 0, Platelet Estimate A, Polychromasia 1+, Ovalocytes 1+, Sodium 134, Potassium 3.4, Chloride 99, Carbon Dioxide 23.9, Anion Gap 10, BUN 11, Creatinine 0.35 L, Estim Creat Clear Calc 78.56, Est GFR (MDRD) Non-Af 111, BUN/Creatinine Ratio 30.5 H, Glucose 96, Calcium 8.6, Triglycerides 53, Cholesterol 141, LDL Cholesterol, Calc 59, VLDL Cholesterol 11, HDL Cholesterol 71, Cholesterol/HDL Ratio 1.98 Micro: Microbiology 02/14/25 12:09 Mucosa - Nose SARS-CoV-2, Influenza & RSV (PCR) - Final SARS-CoV-2 (COVID 19 PCR) Radiography Diagnostic Testing: Radiology Impression Brain CT 02/14/25 12:40 IMPRESSION: Stable examination. No acute abnormality is seen. Reading Location: [facility]-1 Chest X-Ray 02/14/25 12:40 IMPRESSION: No Acute Findings. Reading Location: [place] [address] Brain MRI 02/14/25 13:49 IMPRESSION: 1. No acute finding. No abnormal area of contrast enhancement on postcontrast imaging. 2. Chronic area of encephalomalacia within the left posterior occipital parietal region, compatible with prior infarct. 3. Mild, age-appropriate white matter disease. Reading Location: [facility] Head/Neck CTA 02/14/25 14:00 IMPRESSION: Minimal calcific plaque at the origin of the left internal carotid artery. Reading Location: [place] [address] Physical Exam Const alert and no apparent distress Constitutional Narrative: flat affect General Appearance: cooperative HEENT normocephalic, head/scalp atraumatic, hearing grossly normal bilaterally and moist oral mucous membranes Eyes PERRL, EOMs intact bilaterally and conjunctivae normal Neck no lymphadenopathy, supple and no JVD Resp normal respiratory effort, no retractions, no use of accessory muscles and clear to auscultation bilaterally Cardio regular rate, regular rhythm, S1 normal heart sound, S2 normal heart sound and no murmurs GI normal to inspection, nondistended, normoactive bowel sounds, soft to palpation, non-tender and non-distended Extremity normal to inspection, full ROM and no clubbing, cyanosis or edema General Extremity: no tenderness to palpation of joints or extremities Skin General Skin Exam: no breakdown Neuro CN's II-XII intact bilaterally, moves all extremities and no focal motor deficits Neuro Narrative: flat affect Sensorium / Orientation: awake and alert Motor Exam: strength 5/5 throughout and general weakness Psych thought process normal and cooperative Mood & Affect: flat affect Assessment & Plan Assessment/Plan (1) COVID: PLAN: Plan #Acute encephalopathy * Has no focal weakness. CT of the brain showed no acute intracranial pathology. Chest x-ray was also not significant for any acute pathology. * Respiratory panel was positive for COVID. * MRI of the brain with and without contrast showed no acute intracranial pathology. * Lactic acid was 2.7. * Hydrate gently with IV fluids. Will hold off on starting steroids remdesivir as patient is on room air. * I think it is prudent to get an MRI of the brain and CTA head and neck also to rule out a stroke in light of patient's history of strokes. * Continue PO aspirin and statin * PT OT on board. Fall precautions. * #Lactic acidosis: improved with hydration. Down to 1.4. #COVID: asymptomatic. On room air. #Hyperlipidemia: On statin #History of seizure disorder: No evidence of seizure prior to admission. On valproic acid and Trileptal DVT prophylaxis: Lovenox CODE STATUS:full code * * Disposition: to be determined based on how she does with PT/OT. Charges/Coding Visit Charges Inpatient E&M: 00020 Subs Hosp L2
--- NOTE | 2025-02-15 12:15 | CASEMGMT ---
Met with patient to complete YANES form. YANES form explained to patient who voiced understanding and signed form. Original form placed in pt?s chart and copy provided to patient. Judith Sanders, Discharge Planning Asst
--- NOTE | 2025-02-15 13:47 | NEURO.CONS ---
Assessment and Plan: Neuro Assessment/Plan RICHAR BELTRAN is a 70 F with a past medical history of stroke, seizure, being evaluated by Teleneurology for encephalopathy in setting of COVID infection. Exam is nonfocal but concerning for significant waxing and waning attention and tremor on the RUE. Unclear if just related to infection as patient seems to have improved from prior. But would evaluate for other causes of confusion as well including subclinical events, metabolic causes Diagnosis: encephalopathy Plan: - routine EEG to eval for epileptiform discharges - ammotnia level - continue home oxcarbazepine 900mg BID and VPA 1000mg BID I personally attended this patient and spent a total time of 45minutes evaluating this patient including clinical assessment, review of chart, medical history imaging, and determining appropriate treatment and workup. HPI Consult Data Date of Consult: 02/15/25 HPI Narrative HPI Narrative: RICHAR BELTRAN, is a 70 F with a past medical history as outlined living seizure disorder was admitted through the ED on 02/14/2025 with complaint of altered mental status. According to her she was well until this morning when he found her confused right after she ate breakfast. He had not noticed that she had any seizure episodes. He had not seen her have any recent symptoms and denied any fever or chills, cough, shortness of breath, nausea or vomiting. Review of systems otherwise negative. Could not get much history from the patient due to the altered mental status. Neurologic History: Patient endorses a bad headache, started yesterday. She states she kind of feels like she has had a seizure. She initially states she can feel prodrome to her seizure, which is a pain in her stomach. Patient slightly confuse and has poor attention [facility] Medical History Seizures Stroke/cerebrovascular accident Sleep apnea Home Medications ?Medication ?Instructions ?Recorded ?Last Taken ?Type divalproex 500 mg tablet,extended 1,000 mg PO BID 05/01/17 02/14/25 History release 24 hr oxcarbazepine 600 mg tablet 900 mg PO BID 05/01/17 02/14/25 History (Trileptal) aspirin 81 mg chewable tablet 1 tab PO DAILY 07/08/23 02/14/25 History (Nazia Chewable Low Dose Aspirin) rosuvastatin 10 mg tablet 10 mg PO QHS 07/08/23 02/13/25 History Allergy/AdvReac Type Severity Reaction Status Date / Time No Known Allergies Allergy Verified 02/14/25 12:23 Social History (Updated 02/14/25 @ 11:46 by Clarice Bass) household members: spouse housing: house Smoking Status: Never smoker Vital Signs Vital Signs Vital Signs: 02/14/25 16:16 02/14/25 16:16 02/14/25 16:18 Temperature 97.1 F L 97.1 F L 97.1 F L Temperature Source Oral Oral Oral Pulse Rate 72 72 72 Pulse Strength Respiratory Rate 18 18 18 Respiratory Effort Respiratory Depth Respiratory Pattern Blood Pressure 139/102 H 139/102 H 139/102 H Blood Pressure Mean 114 114 114 Blood Pressure Source Monitor Monitor Blood Pressure Position Semi-Fowlers Semi-Fowlers Blood Pressure Location Right Arm Right Arm Pulse Ox 100 100 100 Oxygen Delivery Method Room Air Room Air Room Air 02/14/25 17:07 02/14/25 19:05 02/14/25 19:05 Temperature Temperature Source Pulse Rate 84 Pulse Strength Respiratory Rate 18 Respiratory Effort Respiratory Depth Respiratory Pattern Normal Blood Pressure Blood Pressure Mean Blood Pressure Source Blood Pressure Position Blood Pressure Location Pulse Ox 94 Oxygen Delivery Method Room Air Room Air 02/14/25 22:00 02/14/25 22:00 02/14/25 23:00 Temperature 100 F H Temperature Source Axillary Pulse Rate 95 Pulse Strength Normal (2+) Respiratory Rate 18 Respiratory Effort Normal Non-Labored Respiratory Depth Normal Respiratory Pattern Normal Blood Pressure 166/79 H Blood Pressure Mean 108 Blood Pressure Source Blood Pressure Position Blood Pressure Location Pulse Ox 96 Oxygen Delivery Method Room Air Room Air 02/15/25 01:13 02/15/25 01:13 02/15/25 03:59 Temperature Temperature Source Pulse Rate 76 Pulse Strength Respiratory Rate 16 Respiratory Effort Normal Non-Labored Respiratory Depth Normal Respiratory Pattern Normal Normal Blood Pressure Blood Pressure Mean Blood Pressure Source Blood Pressure Position Blood Pressure Location Pulse Ox 96 Oxygen Delivery Method Room Air Room Air 02/15/25 04:00 02/15/25 06:40 02/15/25 06:40 Temperature 98.1 F Temperature Source Temporal Pulse Rate 82 76 Pulse Strength Respiratory Rate 18 16 Respiratory Effort Respiratory Depth Respiratory Pattern Blood Pressure 155/82 H Blood Pressure Mean 106 Blood Pressure Source Blood Pressure Position Blood Pressure Location Pulse Ox 97 96 Oxygen Delivery Method Room Air Room Air 02/15/25 08:50 02/15/25 09:00 02/15/25 13:33 Temperature 98.2 F Temperature Source Temporal Pulse Rate 85 72 Pulse Strength Respiratory Rate 18 16 Respiratory Effort Respiratory Depth Respiratory Pattern Blood Pressure 177/68 H Blood Pressure Mean 104 Blood Pressure Source Blood Pressure Position Blood Pressure Location Pulse Ox 97 Oxygen Delivery Method Room Air Room Air Weight Weight: 103.1 kg Body Mass Index (BMI) 38.9 EEG Results Procedure Details EEG Procedure Details: RICHAR BELTRAN is a 70 year old F with a past medical history of , who presents for evaluation of Electroencephalogram on DATE at TIME Physical Exam Narrative -? NEURO: -? Mental Status: The patient was alert but poor attention, knos she is in the hospital but not sure the day of the week or month. -? Language: speech is slurred.? Naming, repetition, fluency, and comprehension intact. -? Cranial Nerves: EOMI, visual campbell full, no facial asymmetry, facial sensation intact, hearing intact, tongue midline, no evidence of atrophy or fibrillations. -? Motor: normal bulk, tone, and strength throughout. No pronator drift or satelliting. Upper and lower extremities equal bilaterally. -? Tone: is normal and bulk is normal -? Sensation- Intact to light touch bilaterally -? Coordination: No dysmetria on [id number] b/l -? Gait-deferred Lab / Micro Data 02/15/25 05:42 02/15/25 05:42 Labs: Laboratory Results - last 24 hr 02/14/25 12:30: Valproic Acid 96 02/14/25 16:16: Lactic Acid 1.4 02/15/25 05:42: WBC 8.7, RBC 3.62 L, Hgb 11.8 L, Hct 34.6 L, MCV 95.6, MCH 32.6 H, MCHC 34.1, RDW Std Deviation 49.6 H, RDW Coeff of Margie 14.1, Plt Count 303, MPV 9.3, Immature Gran % (Auto) 0.500, Neut % (Auto) 61.9, Lymph % (Auto) 19.5, [place] % (Auto) 17.6 H, Eos % (Auto) 0.0, Baso % (Auto) 0.5, Absolute Neuts (auto) 5.4, Absolute Lymphs (auto) 1.69, Nucleated RBC % 0, Platelet Estimate A, Polychromasia 1+, Ovalocytes 1+, Sodium 134, Potassium 3.4, Chloride 99, Carbon Dioxide 23.9, Anion Gap 10, BUN 11, Creatinine 0.35 L, Estim Creat Clear Calc 78.56, Est GFR (MDRD) Non-Af 111, BUN/Creatinine Ratio 30.5 H, Glucose 96, Calcium 8.6, Triglycerides 53, Cholesterol 141, LDL Cholesterol, Calc 59, VLDL Cholesterol 11, HDL Cholesterol 71, Cholesterol/HDL Ratio 1.98 Micro: Microbiology 02/14/25 12:09 Mucosa - Nose SARS-CoV-2, Influenza & RSV (PCR) - Final SARS-CoV-2 (COVID 19 PCR) Imaging Radiology Impression Brain MRI 02/14/25 13:49 IMPRESSION: 1. No acute finding. No abnormal area of contrast enhancement on postcontrast imaging. 2. Chronic area of encephalomalacia within the left posterior occipital parietal region, compatible with prior infarct. 3. Mild, age-appropriate white matter disease. Reading Location: [facility] Head/Neck CTA 02/14/25 14:00 IMPRESSION: Minimal calcific plaque at the origin of the left internal carotid artery. Reading Location: [facility] Active Medications Active Medications Active Medications: Current Medications Generic Name Dose Route Start Last Admin Trade Name Freq PRN Reason Stop Dose Admin Acetaminophen 650 mg 02/14/25 13:49 02/14/25 21:47 Acetaminophen 325 Mg Tablet PO 650 mg Q6H PRN PRN Administration Pain 1-10 Or Fever >100.7 Albuterol/Ipratropium 3 ml 02/14/25 13:49 02/15/25 13:33 Ipratropium/Albuterol Sulfate 3 Ml Ampul.Neb INHALATION 3 ml Q6H.RT RHETT Administration Aspirin 81 mg 02/15/25 08:00 02/15/25 08:55 Aspirin 81 Mg Tab.Chew PO 81 mg BREAKFAST [facility] Administration Atorvastatin Calcium 20 mg 02/14/25 22:00 02/14/25 21:32 Atorvastatin Calcium 20 Mg Tablet PO 20 mg QHS RHETT Administration Divalproex Sodium 1,000 mg 02/14/25 17:00 02/15/25 05:06 Divalproex (Er) 500 Mg Tablet PO 1,000 mg BID@0500,1700 RHETT Administration Enoxaparin Sodium 40 mg 02/15/25 10:00 02/15/25 08:55 Enoxaparin 40 Mg/0.4 Ml Syringe SC Not Given DAILY [facility] Hydralazine HCl 10 mg 02/15/25 00:01 Hydralazine 20 Mg/Ml Vial IV Q4H PRN PRN SBP > 160 Protocol Sodium Chloride 100 mls @ 15 mls/hr 02/14/25 16:13 IV .Q6H40M PRN Saline Flush Sodium Chloride 100 mls @ 15 mls/hr 02/14/25 16:13 IV .Q6H40M PRN Additional IVPB Infusion Nitroglycerin 0.4 mg 02/14/25 13:49 Nitroglycerin (Inpatient Use) 0.4 Mg Tab.Subl SL Q5M PRN CARDIAC/CHEST PAIN Ondansetron HCl 4 mg 02/14/25 13:49 Ondansetron 4 Mg/2 Ml Vial IV Q8H PRN PRN NAUSEA/VOMITING Oxcarbazepine 900 mg 02/14/25 17:00 02/15/25 05:06 Oxcarbazepine 300 Mg Tablet PO 900 mg BID@0500,1700 RHETT Administration Oxycodone HCl 2.5 - 5 mg 02/14/25 13:49 Oxycodone 5 Mg Tablet PO Q4H PRN PRN Pain Score 4-10 Sodium Chloride 10 - 40 ml 02/14/25 16:13 0.9% Saline Lock 10 Ml Syringe IV UD PRN SALINE FLUSH
--- NOTE | 2025-02-15 14:09 | CASEMGMT ---
LOUIS called patient's Jair. LOUIS introduced self and role at [facility]. LOUIS explained that therapy saw patient and they are recommending patient patient go to a detention facility short term for rehab. LOUIS asked Jair if he is in agreement with this. Jair said he is definitely in agreement. LOUIS explained SW will leave a list for him with the facilities that take patient's insurance. LOUIS explained he will need to choose 3-4 preferences that he would prefer. LOUIS will then take care of contacting the facilities. Jair thanked LOUIS for the phone call. Lucrecia ORTIZ
--- NOTE | 2025-02-15 14:12 | CASEMGMT ---
Discharge Planning A list of?SNF providers including quality and resource use data and consistent with the patient's preferred geographic region, medical needs, and insurance network was created in [employer] Guide.? This list was provided to the SW. Judith Sanders Discharge Planning Asst.
--- NOTE | 2025-02-15 14:23 | CASEMGMT ---
Jair arrived at [facility]. LOUIS provided him with a list of SNF's that take patient's insurance. Jair reviewed the list and their choices are: [facility], [facility], [facility], and [facility]. LOUIS made a referral to [facility]. Lucrecia ORTIZ
[2025-02-15] MEDS: Lactulose 20 GM/30 ML UDC PO ×2 (18:01→20:14)
[2025-02-15] MEDS: Atorvastatin Calcium 20 MG Tablet PO (20:13)
[2025-02-16] VITALS (9 sets, daily range): BP systolic 111–200; BP diastolic 52–91; PULSE 68–87; RESP 16–18; TEMP 36.4–36.8; O2SAT 95–97
[2025-02-16 04:35] LABS: Absolute Lymphocyte Count 2.15 X10^3/uL (0.83-4.51); Absolute Neutrophil Count 4.3 X10^3/uL (2.0-7.7); Basophil# 0.04 X10^3/uL; Basophil% 0.5 % (0-1); Hematocrit 35.2 % (37-47); Hemoglobin 11.9 g/dL (12.0-15.0); Lymphocyte # 2.15 X10^3/ul (0.83-4.51); Lymphocyte % 26.9 % (19-41); Mean Corp Hgb Conc 33.8 g/dL (32-36); Mean Corpuscular Hgb 32.3 pg (27.0-32.0); Mean Corpuscular Volume 95.7 fL (81-99); Mean Platelet Vol. 9.4 fl (6.2-12.0); Monocyte# 1.49 X10^3/uL; Monocyte% 18.6 % (0-10); NRBC Flagged by Analyzer 0 % (0-5); Neutrophil # 4.29 X10^3/uL (2.7-7.7); Neutrophil % 53.6 % (47-70); Platelet Count 301 K/mm3 (150-450); RBC Distribution Width CV 14.1 % (11.6-14.6); RBC Distribution Width SD 49.2 fl (35.1-43.9); Red Blood Count 3.68 M/mm3 (4.2-5.4)
[2025-02-16] MEDS: Divalproex (ER) 500 MG Tablet 1000 MG PO ×2 (05:23→17:20)
[2025-02-16] MEDS: OXcarbazepine 300 MG Tablet 900 MG PO ×2 (05:24→17:19)
[2025-02-16] MEDS: Lactulose 20 GM/30 ML UDC PO ×3 (05:24→21:08)
[2025-02-16] MEDS: hydrALAZINE 20 MG/ML Vial 10 MG IV (05:26)
[2025-02-16 05:31] LABS: Anion Gap 12 (5-15); BUN 12 mg/dL (4-19); BUN/Creat Ratio 31.9 RATIO (10-20); Calcium,Total 8.8 mg/dL (7.6-11.0); Carbon Dioxide 24.3 mmol/L (21.0-32.0); Chloride 98 mmol/L (98-108); Creatinine, Serum 0.37 mg/dL (0.70-1.20); EST Glomerular Filtration Rate 109 (>60); Estimated Creatinine Clearance 78.56 ml/min (50-250); Glucose 92 mg/dL (70-99); Potassium 3.4 mmol/L (3.3-5.1); Sodium Level 134 mmol/L (133-145)
[2025-02-16] MEDS: Enoxaparin 40 MG/0.4 ML Syringe SC (08:22)
[2025-02-16] MEDS: Aspirin 81 MG TAB.CHEW PO (08:23)
[2025-02-16] MEDS: amLODIPine 10 MG Tablet PO (08:28)
--- NOTE | 2025-02-16 11:09 | PCM.PN.HOSP ---
Subjective Subjective Doing well, no issues overnight. Had her EEG this morning and is oriented x 2 Objective Data Objective Data Vital Signs: Vital Signs Temp Pulse Resp BP Pulse Ox O2 Del Method 97.6 F L 78 16 155/91 H 96 Room Air 02/16/25 08:15 02/16/25 08:15 02/16/25 08:15 02/16/25 08:15 02/16/25 08:15 02/16/25 08:16 Oxygen Delivery Method Room Air Weight: 232 lb 5.875 oz Body Mass Index (BMI) 38.9 Intake & Output: Intake and Output for Last 24 Hours 02/15/25 02/16/25 02/17/25 03:59 03:59 03:59 Intake Total 2990 / 2990 2000 / 2000 200 / 200 Output Total 850 / 850 700 / 700 600 / 600 Balance 2140 / 2140 1300 / 1300 -400 / -400 Lab / Micro Data 02/16/25 03:44 02/16/25 03:44 Labs: Laboratory Results - last 24 hr 02/15/25 15:42: Ammonia 101.0 H 02/16/25 03:44: WBC 8.0, RBC 3.68 L, Hgb 11.9 L, Hct 35.2 L, MCV 95.7, MCH 32.3 H, MCHC 33.8, RDW Std Deviation 49.2 H, RDW Coeff of Margie 14.1, Plt Count 301, MPV 9.4, Immature Gran % (Auto) 0.400, Neut % (Auto) 53.6, Lymph % (Auto) 26.9, [place] % (Auto) 18.6 H, Eos % (Auto) 0.0, Baso % (Auto) 0.5, Absolute Neuts (auto) 4.3, Absolute Lymphs (auto) 2.15, Nucleated RBC % 0, Sodium 134, Potassium 3.4, Chloride 98, Carbon Dioxide 24.3, Anion Gap 12, BUN 12, Creatinine 0.37 L, Estim Creat Clear Calc 78.56, Est GFR (MDRD) Non-Af 109, BUN/Creatinine Ratio 31.9 H, Glucose 92, Calcium 8.8 Micro: Microbiology 02/14/25 12:09 Mucosa - Nose SARS-CoV-2, Influenza & RSV (PCR) - Final SARS-CoV-2 (COVID 19 PCR) Physical Exam Narrative General: Alert, Oriented x2, Cooperative, No apparent distress HEENT: Atraumatic, PERRLA, EOMI, Normocephalic Oral: Moist Mucosa Neck: Supple, No JVD Lungs: Diminished, Normal air movement, No rhonchi, No wheeze, No rales Cardiovascular: Regular rate, Regular Rhythm, Normal S1, Normal S2, No murmurs Abdomen: Soft, Non Tender, Non-Distended, No Hepato-splenomegaly Extremities: No edema, Capillary Refill Less than 3 Seconds Skin: No rashes, No breakdown Musculoskeletal: No Tenderness to Palpation of Joints or Extremities Neurological: No focal neurological deficits, moves all extremities Psych/Mental Status: Flat Assessment & Plan Assessment/Plan (1) COVID: PLAN: Plan 1. Acute encephalopathy secondary to hyperammonemia potentially due to her Depakote versus COVID/seizure disorder ? Appreciate neurology's assistance ? Awaiting EEG ? She does have COVID without hypoxia ? Continue with lactulose ? MRI of the brain with CTA of the head and neck is normal 2. Hyperlipidemia with a history of CVA ? Continue with aspirin and Crestor ? Stable DVT: Lovenox Charges/Coding Visit Charges Inpatient E&M: 65679 Subs Hosp L2
[2025-02-16] MEDS: Acetaminophen 325 MG Tablet 650 MG PO (11:18)
--- NOTE | 2025-02-16 12:41 | PN.NEURO_ITS ---
Assessment and Plan: Neuro Assessment/Plan RICHAR BELTRAN is a 70 F with a past medical history of stroke, seizure, being evaluated by Teleneurology for encephalopathy in setting of COVID infection. Exam is nonfocal but concerning for significant waxing and waning attention and tremor on the RUE. Unclear if just related to infection as patient seems to have improved from prior. But would evaluate for other causes of confusion as well including subclinical events, metabolic causes Found to have hyperammonemia, given lactulose. Could be from VPA, however she had been seizure free for several years and no asterixis on exam. Unclear if this is contributing to her confusion, but for now would not change her ASM regiment. Diagnosis: encephalopathy Plan: - routine EEG pending - continue lactulose - continue home oxcarbazepine 900mg BID and VPA 1000mg BID I personally attended this patient and spent a total time of 30minutes evaluating this patient including clinical assessment, review of chart, medical history imaging, and determining appropriate treatment and workup. Subject: Neurology Subjective Discussed with and patient is improving. Last seizure was 10 yrs ago. Has been on same ASMs since then EEG Results Procedure Details EEG Procedure Details: RICHAR BELTRAN is a 70 year old F with a past medical history of , who presents for evaluation of Electroencephalogram on DATE at TIME Objective Data Objective Data Vital Signs: Vital Signs Temp Pulse Resp BP Pulse Ox O2 Del Method 97.6 F L 78 16 155/91 H 96 Room Air 02/16/25 08:15 02/16/25 08:15 02/16/25 08:15 02/16/25 08:15 02/16/25 08:15 02/16/25 08:16 Oxygen Delivery Method Room Air Weight: 105.4 kg Body Mass Index (BMI) 38.9 Intake & Output: Intake and Output for Last 24 Hours 02/14/25 02/15/25 02/16/25 23:59 23:59 23:59 Intake Total 1749 2990 / 3240 450 / 450 Output Total 300 / 850 950 / 1250 900 / 900 Balance 1450 / 1140 2039 -450 / -450 Lab / Micro Data 02/16/25 03:44 02/16/25 03:44 Labs: Laboratory Results - last 24 hr 02/15/25 15:42: Ammonia 101.0 H 03/22/25 03:44: WBC 8.0, RBC 3.68 L, Hgb 11.9 L, Hct 35.2 L, MCV 95.7, MCH 32.3 H, MCHC 33.8, RDW Std Deviation 49.2 H, RDW Coeff of Margie 14.1, Plt Count 301, MPV 9.4, Immature Gran % (Auto) 0.400, Neut % (Auto) 53.6, Lymph % (Auto) 26.9, [place] % (Auto) 18.6 H, Eos % (Auto) 0.0, Baso % (Auto) 0.5, Absolute Neuts (auto) 4.3, Absolute Lymphs (auto) 2.15, Nucleated RBC % 0, Sodium 134, Potassium 3.4, Chloride 98, Carbon Dioxide 24.3, Anion Gap 12, BUN 12, Creatinine 0.37 L, Estim Creat Clear Calc 78.56, Est GFR (MDRD) Non-Af 109, BUN/Creatinine Ratio 31.9 H, Glucose 92, Calcium 8.8 Micro: Microbiology 02/14/25 12:09 Mucosa - Nose SARS-CoV-2, Influenza & RSV (PCR) - Final SARS-CoV-2 (COVID 19 PCR) Physical Exam Narrative -? NEURO: -? Mental Status: The patient was alert but poor attention again, knows she is in the hospital but not sure the day of the week or month. -? Language: speech is slurred.? Naming, repetition, fluency, and comprehension intact. -? Cranial Nerves: EOMI, visual campbell full, no facial asymmetry, facial sensation intact, hearing intact, tongue midline, no evidence of atrophy or fibrillations. -? Motor: normal bulk, tone, and strength throughout. No pronator drift or satelliting. Upper and lower extremities equal bilaterally. -? Tone: is normal and bulk is normal -? Sensation- Intact to light touch bilaterally -? Coordination: No dysmetria on [id number] b/l -? Gait-deferred
[2025-02-16] MEDS: Atorvastatin Calcium 20 MG Tablet PO (21:07)
[2025-02-17] VITALS (8 sets, daily range): BP systolic 132–173; BP diastolic 64–83; PULSE 66–85; RESP 16–20; TEMP 36.1–37.1; O2SAT 92–98
[2025-02-17] MEDS: OXcarbazepine 300 MG Tablet 900 MG PO ×2 (05:18→16:58)
[2025-02-17] MEDS: Divalproex (ER) 500 MG Tablet 1000 MG PO ×2 (05:18→16:59)
[2025-02-17] MEDS: Lactulose 20 GM/30 ML UDC PO ×2 (05:18→22:07)
[2025-02-17] MEDS: Ipratropium/Albuterol Sulfate 3 ML AMPUL.NEB INHALATION ×2 (06:44→20:26)
[2025-02-17] MEDS: hydrALAZINE 20 MG/ML Vial 10 MG IV (09:23)
[2025-02-17] MEDS: 0.9% Saline Lock 10 ML Syringe IV (09:23)
[2025-02-17] MEDS: Enoxaparin 40 MG/0.4 ML Syringe SC (09:25)
--- NOTE | 2025-02-17 09:45 | RAD_ITS ---
PROCEDURE: CHEST 1 VIEW (PORTABLE) 02/17/2025 REASON FOR EXAM: ? ASPIRATION TECHNIQUE: Frontal view of the chest. COMPARISON: Chest x-ray of 02/14/2025. RAD/Chest 1 View (Portable) IMPRESSION: Lungs are hypoinflated, but appear essentially clear of acute disease. No evid ence of pulmonary edema. No pleural effusion or pneumothorax is evident. The cardiomediastinal silhouette is stable, without evidence of cardiomegaly. No acute osseous change is seen. Reading Location: [id number]
--- NOTE | 2025-02-17 09:50 | RAD_ITS ---
PROCEDURE: ABDOMEN SINGLE VIEW (PORTABLE) 02/17/2025 REASON FOR EXAM: VOMITING TECHNIQUE: Three-view portable supine abdomen. COMPARISON: None. RAD/Abdomen Single View (Portable) IMPRESSION: Prominent degenerative changes are seen throughout the visualized spine. Mild sacroiliac joint degenerative changes are noted. No excess stool burden is noted. The bowel-gas pattern is unremarkable. No mass or mass effect is seen. Reading Location: [id number]
[2025-02-17 10:27] LABS: Allen Test Positive; Base Excess 3 mmol/L (-2 to +2); Bicarbonate 27.3 mmol/L (22-26); Blood Gas Specimen Type ART; Mode Not entered; O2 Delivery Device Room Air; PO2 60 mmHG (75-100); SITE L Radial; SO2 91 % (95-99); Total Carbon Dioxide 29 mmol/L; pCO2 42.1 mmHg (35-45); pH 7.42 (7.35-7.45)
[2025-02-17 10:47] LABS: Absolute Neutrophil Count 5.7 X10^3/uL (2.0-7.7); Basophil# 0.02 X10^3/uL; Basophil% 0.2 % (0-1); Eosinophil# 0.01 X10^3/uL; Eosinophils% 0.1 % (0-5); Hematocrit 35.8 % (37-47); Hemoglobin 12.3 g/dL (12.0-15.0); Mean Corp Hgb Conc 34.4 g/dL (32-36); Mean Corpuscular Hgb 32.9 pg (27.0-32.0); Mean Corpuscular Volume 95.7 fL (81-99); Mean Platelet Vol. 9.5 fl (6.2-12.0); Monocyte# 0.87 X10^3/uL; Monocyte% 9.9 % (0-10); NRBC Flagged by Analyzer 0 % (0-5); Neutrophil # 5.72 X10^3/uL (2.7-7.7); Neutrophil % 65.3 % (47-70); Platelet Count 288 K/mm3 (150-450); RBC Distribution Width CV 14.4 % (11.6-14.6); RBC Distribution Width SD 50.7 fl (35.1-43.9); Red Blood Count 3.74 M/mm3 (4.2-5.4); White Blood Count 8.8 K/mm3 (4.4-11.0)
[2025-02-17 10:48] LABS: Ammonia 39.2 umol/L (11-51)
--- NOTE | 2025-02-17 14:36 | PN.HOSP_ITS ---
Subjective Subjective No issues overnight however this morning she seemed to be less alert than she was yesterday and she had multiple episodes of emesis with crackles at the bases. Chest x-ray was obtained with no signs of pneumonitis or aspiration, given her emesis a KUB was obtained which was negative for ileus or small bowel obstruction. A repeat on her ammonia was also improved from admission, there is some concern that she might be postictal per nursing the known weakness is seizure and she is on her seizure medications and has not missed a dose while here. ABG was negative for hypercapnia but it did show hypoxia. She has been on Lovenox since admission and she is not tachycardic or tachypneic. Objective Data Objective Data Vital Signs: Vital Signs Temp Pulse Resp BP Pulse Ox O2 Del Method O2 Flow Rate 97.0 F L 66 16 132/64 H 95 Nasal Cannula 2 02/17/25 14:02/17/25 14:02/17/25 14:02/17/25 14:02/17/25 14:02/17/25 14:02/17/25 14:26 Oxygen Flow Rate (L/min) 2 Oxygen Delivery Method Nasal Cannula Weight: 232 lb 5.875 oz Body Mass Index (BMI) 38.9 Intake & Output: Intake and Output for Last 24 Hours 02/16/25 02/17/25 02/18/25 03:59 03:59 03:59 Intake Total 1999 / 1999 1544 / 1544 120 / 120 Output Total 700 / 700 1100 / 1100 100 / 100 Balance 1300 / 1300 444 / 444 Lab / Micro Data 02/17/25 10:12 02/16/25 03:44 Labs: Laboratory Results - last 24 hr 02/17/25 10:12: WBC 8.8, RBC 3.74 L, Hgb 12.3, Hct 35.8 L, MCV 95.7, MCH 32.9 H, MCHC 34.4, RDW Std Deviation 50.7 H, RDW Coeff of Margie 14.4, Plt Count 288, MPV 9.5, Immature Gran % (Auto) 0.500, Neut % (Auto) 65.3, Lymph % (Auto) 24.0, [place] % (Auto) 9.9, Eos % (Auto) 0.1, Baso % (Auto) 0.2, Absolute Neuts (auto) 5.7, Absolute Lymphs (auto) 2.10, Nucleated RBC % 0, Ammonia 39.2 Micro: Microbiology 02/14/25 12:09 Mucosa - Nose SARS-CoV-2, Influenza & RSV (PCR) - Final SARS-CoV-2 (COVID 19 PCR) ABG Data ABG results: ABG 02/17/25 10:22 Specimen Type ART Sample Site L Radial pH 7.42 Bicarbonate Actual 27.3 H Total CO2 29 Base Excess 3 H O2 Saturation 91 L O2 % 21.0 ABG pCO2 42.1 ABG pO2 60 L Todd Test Positive O2 Delivery Device Room Air Vent Mode Not entered Radiography Diagnostic Testing: Radiology Impression Chest X-Ray 02/17/25 09:45 IMPRESSION: Lungs are hypoinflated, but appear essentially clear of acute disease. No evidence of pulmonary edema. No pleural effusion or pneumothorax is evident. The cardiomediastinal silhouette is stable, without evidence of cardiomegaly. No acute osseous change is seen. Reading Location: [address] KUB X-Ray 02/17/25 09:50 IMPRESSION: Prominent degenerative changes are seen throughout the visualized spine. Mild sacroiliac joint degenerative changes are noted. No excess stool burden is noted. The bowel-gas pattern is unremarkable. No mass or mass effect is seen. Reading Location: [address] Physical Exam Narrative General: Drowsy, Oriented x2, Cooperative, No apparent distress HEENT: Atraumatic, PERRLA, EOMI, Normocephalic Oral: Moist Mucosa Neck: Supple, No JVD Lungs: Diminished, Normal air movement, No rhonchi, No wheeze, No rales Cardiovascular: Regular rate, Regular Rhythm, Normal S1, Normal S2, No murmurs Abdomen: Soft, Non Tender, Non-Distended, No Hepato-splenomegaly Extremities: No edema, Capillary Refill Less than 3 Seconds Skin: No rashes, No breakdown Musculoskeletal: No Tenderness to Palpation of Joints or Extremities Neurological: No focal neurological deficits, moves all extremities Psych/Mental Status: Flat Assessment & Plan Assessment/Plan (1) COVID: PLAN: Plan 1. Acute encephalopathy secondary to hyperammonemia potentially due to her Depakote versus COVID/seizure disorder ? Appreciate neurology's assistance ? Awaiting EEG ? She does have COVID and now has some hypoxia on ABG. Will start her on Decadron ? Continue with lactulose, her ammonia improved from 101 -39 ? MRI of the brain with CTA of the head and neck is normal ? Given her nausea and or vomiting chest x-ray was negative for aspiration pneumonia or pneumonitis and KUB was negative for ileus and SBO ? ABG demonstrated hypoxia with a pO2 of 60 mmHg on air with saturation of 91% 2. Hyperlipidemia with a history of CVA ? Continue with aspirin and Crestor ? Stable DVT: Lovenox Charges/Coding Visit Charges Inpatient E&M: 92542 Subs Hosp L3
[2025-02-17] MEDS: dexAMETHasone 10 MG/ML Vial 6 MG IV (17:00)
[2025-02-17] MEDS: Atorvastatin Calcium 20 MG Tablet PO (22:08)
--- NOTE | 2025-02-17 22:36 | PCM.HOSP.N ---
Hospitalist Note MRI negative. Work-up for CVA/TIA negative. No obvious infectious process. NH negative. Currently pending EEG and on AED with history. Possibly the source complicated by COVID with hypoxia. She is having recurrent mild difficulty getting words out and some repetitive words. Given evaluation in the chart and everything going on do suspect that the higher likelihood is potential encephalopathy associated with her COVID illness versus possible breakthrough seizure activity. Will very cautiously give her a low-dose dose of Ativan x 1 now and reassess. Neurology is already following with note reviewed, evaluated earlier in the day.
[2025-02-17] MEDS: Lorazepam 2 MG/ML WCH Syringe 0.5 MG IV (22:48)
[2025-02-17 23:06] LABS: Bedside Glucose 149 mg/dL (74-106)
--- NOTE | 2025-02-17 23:52 | PN.NEURO_ITS ---
Assessment and Plan: Neuro Assessment/Plan Plan RICHAR BELTRAN is a 70 F with a past medical history of stroke, seizure, being evaluated by Teleneurology for encephalopathy in setting of COVID infection. Exam is nonfocal but concerning for significant waxing and waning attention and tremor on the RUE. Unclear if just related to infection as patient seems to have improved from prior. But would evaluate for other causes of confusion as well including subclinical events, metabolic causes Ammonia is lower, patient with severe nausea today and looks worse, do not believe pt's ASMs are adding to her confusion at this time Diagnosis: encephalopathy Plan: - routine EEG with diffuse slowing - continue lactulose - continue home oxcarbazepine 900mg BID and VPA 1000mg BID - delirium precautions - please ensure sleep overnight - evaluate for other causes of vomitting I personally attended this patient and spent a total time of 30minutes evaluating this patient including clinical assessment, review of chart, medical history imaging, and determining appropriate treatment and workup. Subject: Neurology Subjective Pt vomitting quite a bit today, KUB is normal. Patient's states she has been vomitted alot, through 3-4 bags so far. EEG Results Procedure Details EEG Procedure Details: RICHAR BELTRAN is a 70 year old F with a past medical history of , who presents for evaluation of Electroencephalogram on DATE at TIME Objective Data Objective Data Vital Signs: Vital Signs Temp Pulse Resp BP Pulse Ox O2 Del Method O2 Flow Rate 97.8 F 74 18 135/65 H 95 Nasal Cannula 2 02/17/25 23:50 02/17/25 23:50 02/17/25 23:50 02/17/25 23:50 02/17/25 23:50 02/17/25 23:50 02/17/25 23:50 Oxygen Flow Rate (L/min) 2 Oxygen Delivery Method Nasal Cannula Weight: 105.4 kg Body Mass Index (BMI) 38.9 Intake & Output: Intake and Output for Last 24 Hours 02/15/25 02/16/25 02/17/25 23:59 23:59 23:59 Intake Total 2990 / 3240 1734 / 1794 300 / 300 Output Total 950 / 1250 1400 / 1400 280 / 280 Balance 2039 / 1989 334 / 394 20 / 20 Lab / Micro Data 02/17/25 10:12 02/16/25 03:44 Labs: Laboratory Results - last 24 hr 02/17/25 10:12: WBC 8.8, RBC 3.74 L, Hgb 12.3, Hct 35.8 L, MCV 95.7, MCH 32.9 H, MCHC 34.4, RDW Std Deviation 50.7 H, RDW Coeff of Margie 14.4, Plt Count 288, MPV 9.5, Immature Gran % (Auto) 0.500, Neut % (Auto) 65.3, Lymph % (Auto) 24.0, [place] % (Auto) 9.9, Eos % (Auto) 0.1, Baso % (Auto) 0.2, Absolute Neuts (auto) 5.7, Absolute Lymphs (auto) 2.10, Nucleated RBC % 0, Ammonia 39.2 02/17/25 22:44: POC Glucose 149 H Micro: Microbiology 02/14/25 12:09 Mucosa - Nose SARS-CoV-2, Influenza & RSV (PCR) - Final SARS-CoV-2 (COVID 19 PCR) ABG Data ABG results: ABG 02/17/25 10:22 Specimen Type ART Sample Site L Radial pH 7.42 Bicarbonate Actual 27.3 H Total CO2 29 Base Excess 3 H O2 Saturation 91 L O2 % 21.0 ABG pCO2 42.1 ABG pO2 60 L Todd Test Positive O2 Delivery Device Room Air Vent Mode Not entered Radiography Diagnostic Testing: Radiology Impression Chest X-Ray 02/17/25 09:45 IMPRESSION: Lungs are hypoinflated, but appear essentially clear of acute disease. No evidence of pulmonary edema. No pleural effusion or pneumothorax is evident. The cardiomediastinal silhouette is stable, without evidence of cardiomegaly. No acute osseous change is seen. Reading Location: [address] KUB X-Ray 02/17/25 09:50 IMPRESSION: Prominent degenerative changes are seen throughout the visualized spine. Mild sacroiliac joint degenerative changes are noted. No excess stool burden is noted. The bowel-gas pattern is unremarkable. No mass or mass effect is seen. Reading Location: [address] Physical Exam Narrative -? NEURO: -? Mental Status: somnolent, does not follow complex commands, will follow simple commands -? Language: speech is slurred, patient confused, does not name things well -? Cranial Nerves: EOMI, visual campbell full, no facial asymmetry, -? Motor: arms and legs antigravity as yesterday
[2025-02-18] VITALS (9 sets, daily range): BP systolic 128–149; BP diastolic 69–100; PULSE 69–86; RESP 14–18; TEMP 36.3–36.6; O2SAT 94–100
[2025-02-18] MEDS: Ipratropium/Albuterol Sulfate 3 ML AMPUL.NEB INHALATION ×3 (01:38→19:56)
[2025-02-18] MEDS: OXcarbazepine 300 MG Tablet 900 MG PO ×2 (04:38→17:31)
[2025-02-18] MEDS: Divalproex (ER) 500 MG Tablet 1000 MG PO ×2 (04:38→17:30)
[2025-02-18] MEDS: Lactulose 20 GM/30 ML UDC PO ×3 (04:44→20:46)
[2025-02-18 04:50] LABS: Absolute Lymphocyte Count 1.29 X10^3/uL (0.83-4.51); Absolute Neutrophil Count 9.7 X10^3/uL (2.0-7.7); Basophil# 0.02 X10^3/uL; Basophil% 0.2 % (0-1); Hemoglobin 11.9 g/dL (12.0-15.0); Lymphocyte # 1.29 X10^3/ul (0.83-4.51); Mean Corpuscular Hgb 32.3 pg (27.0-32.0); Mean Corpuscular Volume 95.1 fL (81-99); Mean Platelet Vol. 9.8 fl (6.2-12.0); Monocyte# 0.71 X10^3/uL; NRBC Flagged by Analyzer 0 % (0-5); Neutrophil # 9.68 X10^3/uL (2.7-7.7); Neutrophil % 82.5 % (47-70); Platelet Count 309 K/mm3 (150-450); RBC Distribution Width CV 14.2 % (11.6-14.6); RBC Distribution Width SD 50.1 fl (35.1-43.9); Red Blood Count 3.68 M/mm3 (4.2-5.4); White Blood Count 11.7 K/mm3 (4.4-11.0)
[2025-02-18 05:16] LABS: Anion Gap 11 (5-15); BUN 27 mg/dL (4-19); Carbon Dioxide 25.7 mmol/L (21.0-32.0); Chloride 100 mmol/L (98-108); Creatinine, Serum 0.44 mg/dL (0.70-1.20); EST Glomerular Filtration Rate 105 (>60); Estimated Creatinine Clearance 78.56 ml/min (50-250); Glucose 110 mg/dL (70-99); Potassium 3.6 mmol/L (3.3-5.1); Sodium Level 137 mmol/L (133-145)
[2025-02-18] MEDS: amLODIPine 10 MG Tablet PO (08:59)
[2025-02-18] MEDS: dexAMETHasone 10 MG/ML Vial 6 MG IV (08:59)
[2025-02-18] MEDS: Aspirin 81 MG TAB.CHEW PO (08:59)
[2025-02-18] MEDS: Enoxaparin 40 MG/0.4 ML Syringe SC (08:59)
--- NOTE | 2025-02-18 09:45 | CASEMGMT ---
TCU is unable to take patient. SW asked Judith to please send a referral to [facility], family's second choice. Lucrecia Martins [employer]
--- NOTE | 2025-02-18 09:57 | CASEMGMT ---
Addendum entered by Judith Sanders 02/18/25 12:12: [facility] has accepted. Updates will need sent in the morning for precert to be submitted. Judith Sanders DC Planning Asst. Original Note: Discharge Planning Referral sent to [facility]. Judith Sanders DC Planning Asst.
--- NOTE | 2025-02-18 10:07 | PCM.PN.HOSP ---
Subjective Subjective Remains confused with ANO x 2, she still cannot get out what year it is but she knows who she is where she has speech is slow they will Objective Data Objective Data Vital Signs: Vital Signs Temp Pulse Resp BP Pulse Ox O2 Del Method O2 Flow Rate 97.4 F L 80 18 132/71 H 100 Nasal Cannula 2 02/18/25 08:51 02/18/25 08:51 02/18/25 08:51 02/18/25 08:51 02/18/25 08:51 02/18/25 09:24 02/18/25 09:24 Oxygen Flow Rate (L/min) 2 Oxygen Delivery Method Nasal Cannula Weight: 232 lb 5.875 oz Body Mass Index (BMI) 38.9 Intake & Output: Intake and Output for Last 24 Hours 02/17/25 02/18/25 02/19/25 03:59 03:59 03:59 Intake Total 1544 / 1544 360 / 360 120 / 120 Output Total 1100 / 1100 280 / 280 350 / 350 Balance 444 / 444 80 / 80 -230 / -230 Lab / Micro Data 02/18/25 04:17 02/18/25 04:17 Labs: Laboratory Results - last 24 hr 02/17/25 10:12: WBC 8.8, RBC 3.74 L, Hgb 12.3, Hct 35.8 L, MCV 95.7, MCH 32.9 H, MCHC 34.4, RDW Std Deviation 50.7 H, RDW Coeff of Margie 14.4, Plt Count 288, MPV 9.5, Immature Gran % (Auto) 0.500, Neut % (Auto) 65.3, Lymph % (Auto) 24.0, [place] % (Auto) 9.9, Eos % (Auto) 0.1, Baso % (Auto) 0.2, Absolute Neuts (auto) 5.7, Absolute Lymphs (auto) 2.10, Nucleated RBC % 0, Ammonia 39.2 02/17/25 22:44: POC Glucose 149 H 02/18/25 04:17: WBC 11.7 H, RBC 3.68 L, Hgb 11.9 L, Hct 35.0 L, MCV 95.1, MCH 32.3 H, MCHC 34.0, RDW Std Deviation 50.1 H, RDW Coeff of Margie 14.2, Plt Count 309, MPV 9.8, Immature Gran % (Auto) 0.300, Neut % (Auto) 82.5 H, Lymph % (Auto) 11.0 L, [place] % (Auto) 6.0, Eos % (Auto) 0.0, Baso % (Auto) 0.2, Absolute Neuts (auto) 9.7 H, Absolute Lymphs (auto) 1.29, Nucleated RBC % 0, Sodium 137, Potassium 3.6, Chloride 100, Carbon Dioxide 25.7, Anion Gap 11, BUN 27 H, Creatinine 0.44 L, Estim Creat Clear Calc 78.56, Est GFR (MDRD) Non-Af 105, BUN/Creatinine Ratio 63.0 H, Glucose 110 H, Calcium 9.0 Micro: Microbiology 02/14/25 12:09 Mucosa - Nose SARS-CoV-2, Influenza & RSV (PCR) - Final SARS-CoV-2 (COVID 19 PCR) ABG Data ABG results: ABG 02/17/25 10:22 Specimen Type ART Sample Site L Radial pH 7.42 Bicarbonate Actual 27.3 H Total CO2 29 Base Excess 3 H O2 Saturation 91 L O2 % 21.0 ABG pCO2 42.1 ABG pO2 60 L Todd Test Positive O2 Delivery Device Room Air Vent Mode Not entered Radiography Diagnostic Testing: Radiology Impression Chest X-Ray 02/17/25 09:45 IMPRESSION: Lungs are hypoinflated, but appear essentially clear of acute disease. No evidence of pulmonary edema. No pleural effusion or pneumothorax is evident. The cardiomediastinal silhouette is stable, without evidence of cardiomegaly. No acute osseous change is seen. Reading Location: [address] KUB X-Ray 02/17/25 09:50 IMPRESSION: Prominent degenerative changes are seen throughout the visualized spine. Mild sacroiliac joint degenerative changes are noted. No excess stool burden is noted. The bowel-gas pattern is unremarkable. No mass or mass effect is seen. Reading Location: [address] Physical Exam Narrative General: Drowsy, Oriented x2, Cooperative, No apparent distress HEENT: Atraumatic, PERRLA, EOMI, Normocephalic Oral: Moist Mucosa Neck: Supple, No JVD Lungs: Diminished, Normal air movement, No rhonchi, No wheeze, No rales Cardiovascular: Regular rate, Regular Rhythm, Normal S1, Normal S2, No murmurs Abdomen: Soft, Non Tender, Non-Distended, No Hepato-splenomegaly Extremities: No edema, Capillary Refill Less than 3 Seconds Skin: No rashes, No breakdown Musculoskeletal: No Tenderness to Palpation of Joints or Extremities Neurological: No focal neurological deficits, moves all extremities Psych/Mental Status: Flat Assessment & Plan Assessment/Plan (1) COVID: PLAN: Plan 1. Acute encephalopathy secondary to hyperammonemia potentially due to her Depakote versus COVID/seizure disorder ? Appreciate neurology's assistance ? EEG is unremarkable ? She does have COVID and now has some hypoxia on ABG. Continue with Decadron ? Continue with lactulose, her ammonia improved from 101 to 39 ? MRI of the brain with CTA of the head and neck is normal, no indication for an LP at this time she has slight bump in her white count but this is likely due to steroids yesterday ? No further episodes of vomiting ? ABG demonstrated hypoxia with a pO2 of 60 mmHg on air with saturation of 91% 2. Hyperlipidemia with a history of CVA ? Continue with aspirin and Crestor ? Stable DVT: Lovenox Charges/Coding Visit Charges Inpatient E&M: 74293 Subs Hosp L2
--- NOTE | 2025-02-18 15:15 | CASEMGMT ---
LOUIS called patient's Jair and let him know that [facility]CU is unable to take patient, but [facility] is able to. LOUIS explained once patient is medically ready and insurance approves patient will be moved. Plan: d/c to [facility] when medically ready and insurance approves. Lucrecia Martins [employer]
--- NOTE | 2025-02-18 15:42 | PN.NEURO_ITS ---
Assessment and Plan: Neuro Assessment/Plan 70 yo woman with stroke, seizures (on oxcarb 900 BID, and VPA 100 BID), presenting with confusion in the setting of COVID infection. Exam non-focal but concerning for significant waxing and waning. Ammonia 101 trended down to 39 after starting lactulose. Unsure of etioloyg of hyperammonemia, could be related to VPA, hwoever she has been on it for years and seizures free. she has been seizures free for years on VPA dosing. MRI brain negative EEG with mild encephalopathy, no epileptiform discharges Hypoxic started on Decadron for covid. At baseline, she uses a walker able to walk around the house and on a side walk, but unable to do a step or curl without assistance, she has forgetfulness at times, but nothing to this extent Today she is doing much better per at bedside, remains with some confusion but improving #Toxic metabolic encephalopathy in the setting of COVID infection, and hyperammonemia #Hyperammonemia Regarding hyperammonemia, risk factors include VPA and underlying infection. Given she has been on VPA for a long time and seizures free, I think it would be reasonable to keep the dose as is for now, and re check ammonia level as COVID infection resolves. If remain elevated and symptomatic then, can consider lowering the dose or switching to a alternative medication. Start Levocarnitine supplementation I personally attended this patient and spent a total time of 40 minutes evaluating this patient including clinical assessment, review of chart, medical history imaging, and determining appropriate treatment and workup. Subject: Neurology Subjective Per husbnad at bedside, she is doing much better today compared to yesterday. Opening her eyes, eating, talking EEG Results Procedure Details EEG Procedure Details: RICHAR BELTRAN is a 70 year old F with a past medical history of , who presents for evaluation of Electroencephalogram on DATE at TIME Objective Data Objective Data Vital Signs: Vital Signs Temp Pulse Resp BP Pulse Ox O2 Del Method O2 Flow Rate 97.5 F L 77 16 128/69 H 95 Nasal Cannula 2 02/18/25 14:17 02/18/25 14:17 02/18/25 14:17 02/18/25 14:17 02/18/25 14:17 02/18/25 14:20 02/18/25 14:20 Oxygen Flow Rate (L/min) 2 Oxygen Delivery Method Nasal Cannula Weight: 105.4 kg Body Mass Index (BMI) 38.9 Intake & Output: Intake and Output for Last 24 Hours 02/16/25 02/17/25 02/18/25 23:59 23:59 23:59 Intake Total 1734 / 1794 300 / 420 240 / 240 Output Total 1400 / 1400 280 / 280 350 / 350 Balance 334 / 394 20 / 140 -110 / -110 Lab / Micro Data 02/18/25 04:17 02/18/25 04:17 Labs: Laboratory Results - last 24 hr 02/17/25 22:44: POC Glucose 149 H 02/18/25 04:17: WBC 11.7 H, RBC 3.68 L, Hgb 11.9 L, Hct 35.0 L, MCV 95.1, MCH 32.3 H, MCHC 34.0, RDW Std Deviation 50.1 H, RDW Coeff of Margie 14.2, Plt Count 309, MPV 9.8, Immature Gran % (Auto) 0.300, Neut % (Auto) 82.5 H, Lymph % (Auto) 11.0 L, [place] % (Auto) 6.0, Eos % (Auto) 0.0, Baso % (Auto) 0.2, Absolute Neuts (auto) 9.7 H, Absolute Lymphs (auto) 1.29, Nucleated RBC % 0, Sodium 137, Potassium 3.6, Chloride 100, Carbon Dioxide 25.7, Anion Gap 11, BUN 27 H, C reatinine 0.44 L, Estim Creat Clear Calc 78.56, Est GFR (MDRD) Non-Af 105, B UN/Creatinine Ratio 63.0 H, Glucose 110 H, Calcium 9.0 Micro: Microbiology 02/14/25 12:09 Mucosa - Nose SARS-CoV-2, Influenza & RSV (PCR) - Final SARS-CoV-2 (COVID 19 PCR) Physical Exam Narrative AO to self and place, not to year,however says sometimes she wouldn?t, following simple commands. All extremities anti gravity
[2025-02-18] MEDS: Atorvastatin Calcium 20 MG Tablet PO (20:46)
[2025-02-19] VITALS (11 sets, daily range): BP systolic 91–151; BP diastolic 65–98; PULSE 68–87; RESP 16–18; TEMP 36.4–36.6; O2SAT 93–100
[2025-02-19] MEDS: Acetaminophen 325 MG Tablet 650 MG PO (01:53)
[2025-02-19] MEDS: Divalproex (ER) 500 MG Tablet 1000 MG PO ×2 (05:50→17:19)
[2025-02-19] MEDS: OXcarbazepine 300 MG Tablet 900 MG PO ×2 (05:50→17:19)
[2025-02-19] MEDS: Lactulose 20 GM/30 ML UDC PO ×3 (05:51→20:27)
[2025-02-19 06:20] LABS: Absolute Lymphocyte Count 1.75 X10^3/uL (0.83-4.51); Absolute Neutrophil Count 7.1 X10^3/uL (2.0-7.7); Basophil# 0.02 X10^3/uL; Basophil% 0.2 % (0-1); Hemoglobin 11.1 g/dL (12.0-15.0); Lymphocyte # 1.75 X10^3/ul (0.83-4.51); Lymphocyte % 17.9 % (19-41); Mean Corp Hgb Conc 33.6 g/dL (32-36); Mean Corpuscular Hgb 32.5 pg (27.0-32.0); Mean Corpuscular Volume 96.5 fL (81-99); Mean Platelet Vol. 9.8 fl (6.2-12.0); Monocyte# 0.85 X10^3/uL; Monocyte% 8.7 % (0-10); NRBC Flagged by Analyzer 0 % (0-5); Neutrophil % 72.8 % (47-70); Platelet Count 337 K/mm3 (150-450); RBC Distribution Width CV 14.4 % (11.6-14.6); RBC Distribution Width SD 51.2 fl (35.1-43.9); Red Blood Count 3.42 M/mm3 (4.2-5.4); White Blood Count 9.8 K/mm3 (4.4-11.0)
[2025-02-19] MEDS: Ipratropium/Albuterol Sulfate 3 ML AMPUL.NEB INHALATION ×2 (07:35→13:21)
[2025-02-19] MEDS: Aspirin 81 MG TAB.CHEW PO (09:02)
[2025-02-19] MEDS: Enoxaparin 40 MG/0.4 ML Syringe SC (09:02)
[2025-02-19] MEDS: amLODIPine 10 MG Tablet PO (09:03)
[2025-02-19] MEDS: 0.9% Saline Lock 10 ML Syringe IV ×2 (09:03→13:40)
[2025-02-19] MEDS: dexAMETHasone 10 MG/ML Vial 6 MG IV (09:03)
--- NOTE | 2025-02-19 11:05 | PN.HOSP_ITS ---
Subjective Subjective states that she is much improved from when she came in but she is still not close to her baseline. Remains oriented x 2 Objective Data Objective Data Vital Signs: Vital Signs Temp Pulse Resp BP Pulse Ox O2 Del Method O2 Flow Rate 97.9 F 80 18 141/98 H 95 Nasal Cannula 2 02/19/25 09:29 02/19/25 09:29 02/19/25 09:29 02/19/25 09:29 02/19/25 09:40 02/19/25 09:29 02/19/25 09:40 Oxygen Flow Rate (L/min) 2 Oxygen Delivery Method Nasal Cannula Weight: 232 lb 5.875 oz Body Mass Index (BMI) 38.9 Intake & Output: Intake and Output for Last 24 Hours 02/18/25 02/19/25 02/20/25 03:59 03:59 03:59 Intake Total 360 / 360 480 / 480 Output Total 280 / 280 600 / 600 Balance 80 / 80 -120 / -120 Lab / Micro Data 02/19/25 05:27 02/18/25 04:17 Labs: Laboratory Results - last 24 hr 02/19/25 05:27: WBC 9.8, RBC 3.42 L, Hgb 11.1 L, Hct 33.0 L, MCV 96.5, MCH 32.5 H, MCHC 33.6, RDW Std Deviation 51.2 H, RDW Coeff of Margie 14.4, Plt Count 337, MPV 9.8, Immature Gran % (Auto) 0.400, Neut % (Auto) 72.8 H, Lymph % (Auto) 17.9 L, [place] % (Auto) 8.7, Eos % (Auto) 0.0, Baso % (Auto) 0.2, Absolute Neuts (auto) 7.1, Absolute Lymphs (auto) 1.75, Nucleated RBC % 0 Micro: Microbiology 02/14/25 12:09 Mucosa - Nose SARS-CoV-2, Influenza & RSV (PCR) - Final SARS-CoV-2 (COVID 19 PCR) Physical Exam Narrative General: Drowsy, Oriented x2, Cooperative, No apparent distress HEENT: Atraumatic, PERRLA, EOMI, Normocephalic Oral: Moist Mucosa Neck: Supple, No JVD Lungs: Diminished, Normal air movement, No rhonchi, No wheeze, No rales Cardiovascular: Regular rate, Regular Rhythm, Normal S1, Normal S2, No murmurs Abdomen: Soft, Non Tender, Non-Distended, No Hepato-splenomegaly Extremities: No edema, Capillary Refill Less than 3 Seconds Skin: No rashes, No breakdown Musculoskeletal: No Tenderness to Palpation of Joints or Extremities Neurological: No focal neurological deficits, moves all extremities Psych/Mental Status: Flat Assessment & Plan Assessment/Plan (1) COVID: PLAN: Plan 1. Acute encephalopathy secondary to hyperammonemia potentially due to her Depakote versus COVID/seizure disorder ? Appreciate neurology's assistance ? EEG is unremarkable ? She does have COVID and now has low pO2 on ABG. Continue with Decadron ? Continue with lactulose, her ammonia improved from 101 to 39 ? MRI of the brain with CTA of the head and neck is normal, if no improvement by tomorrow will order an LP, she does not have any significant symptoms consistent with encephalitis or meningitis at this time but I have no other explanation for her altered mental status at this time ? No further episodes of vomiting 2. Hyperlipidemia with a history of CVA ? Continue with aspirin and Crestor ? Stable DVT: Lovenox Charges/Coding Visit Charges Inpatient E&M: 56135 Subs Hosp L2
--- NOTE | 2025-02-19 11:58 | NEURO.PNOTE ---
Assessment and Plan: Neuro Assessment/Plan 70 yo woman with stroke, seizures (on oxcarb 900 BID, and VPA 100 BID), presenting with confusion in the setting of COVID infection. Exam non-focal but concerning for significant waxing and waning. Ammonia 101 trended down to 39 after starting lactulose. Unsure of etioloyg of hyperammonemia, could be related to VPA, hwoever she has been on it for years and seizures free. she has been seizures free for years on VPA dosing. MRI brain negative EEG with mild encephalopathy, no epileptiform discharges Hypoxic started on Decadron for covid. on 2 L NC At baseline, she uses a walker able to walk around the house and on a side walk, but unable to do a step or curl without assistance, she has forgetfulness at times, but nothing to this extent Clinically remain unchanged today compared to yesterday, continue to have waxing and waning mentation #Toxic metabolic encephalopathy in the setting of COVID infection, and hyperammonemia Given some cognitive impairment at baseline, it may take her longer to recover from acute illness, still reasonable to monitor clinically and give her more time. Delirium precautions #Hyperammonemia Regarding hyperammonemia, risk factors include VPA and underlying infection. Given she has been on VPA for a long time and seizures free, I think it would be reasonable to keep the dose as is for now, and re check ammonia level as COVID infection resolves. If remain elevated and symptomatic then, can consider lowering the dose or switching to a alternative medication. Start Levocarnitine supplementation Will continue to follow Subject: Neurology Subjective Continues to have waxing and waning mentation EEG Results Procedure Details EEG Procedure Details: RICHAR BELTRAN is a 70 year old F with a past medical history of , who presents for evaluation of Electroencephalogram on DATE at TIME Objective Data Objective Data Vital Signs: Vital Signs Temp Pulse Resp BP Pulse Ox O2 Del Method O2 Flow Rate 97.9 F 80 18 141/98 H 95 Nasal Cannula 2 02/19/25 09:29 02/19/25 09:29 02/19/25 09:29 02/19/25 09:29 02/19/25 09:40 02/19/25 09:29 02/19/25 09:40 Oxygen Flow Rate (L/min) 2 Oxygen Delivery Method Nasal Cannula Weight: 105.4 kg Body Mass Index (BMI) 38.9 Intake & Output: Intake and Output for Last 24 Hours 02/17/25 02/18/25 02/19/25 23:59 23:59 23:59 Intake Total 300 / 420 480 / 480 120 / 120 Output Total 280 / 280 350 / 350 250 / 250 Balance 20 / 140 130 / 130 -130 / -130 Lab / Micro Data 02/19/25 05:27 02/18/25 04:17 Labs: Laboratory Results - last 24 hr 02/19/25 05:27: WBC 9.8, RBC 3.42 L, Hgb 11.1 L, Hct 33.0 L, MCV 96.5, MCH 32.5 H, MCHC 33.6, RDW Std Deviation 51.2 H, RDW Coeff of Marige 14.4, Plt Count 337, MPV 9.8, Immature Gran % (Auto) 0.400, Neut % (Auto) 72.8 H, Lymph % (Auto) 17.9 L, [place] % (Auto) 8.7, Eos % (Auto) 0.0, Baso % (Auto) 0.2, Absolute Neuts (auto) 7.1, Absolute Lymphs (auto) 1.75, Nucleated RBC % 0 Micro: Microbiology 02/14/25 12:09 Mucosa - Nose SARS-CoV-2, Influenza & RSV (PCR) - Final SARS-CoV-2 (COVID 19 PCR) Physical Exam Narrative alert, sitting up in chair, follows simple commands intermittently, able to raise her arms, knows her name and that she is at the hospital
[2025-02-19] MEDS: Atorvastatin Calcium 20 MG Tablet PO (20:26)
[2025-02-20] VITALS (8 sets, daily range): BP systolic 121–172; BP diastolic 52–84; PULSE 64–94; RESP 16–18; TEMP 36.1–36.8; O2SAT 93–99
[2025-02-20] MEDS: Divalproex (ER) 500 MG Tablet 1000 MG PO ×2 (05:04→16:03)
[2025-02-20] MEDS: Lactulose 20 GM/30 ML UDC PO ×3 (05:04→21:50)
[2025-02-20] MEDS: OXcarbazepine 300 MG Tablet 900 MG PO ×2 (05:04→16:03)
[2025-02-20] MEDS: 0.9% Saline Lock 10 ML Syringe IV ×3 (05:19→19:45)
[2025-02-20] MEDS: hydrALAZINE 20 MG/ML Vial 10 MG IV (05:19)
[2025-02-20] MEDS: Ipratropium/Albuterol Sulfate 3 ML AMPUL.NEB INHALATION ×2 (07:29→13:16)
[2025-02-20 07:38] LABS: AST(SGOT) 28 U/L (<=31); Alanine Aminotransfer ALT/SGPT 10 U/L (<=34); Alkaline Phosphatase 63 U/L (35-104); Anion Gap 11 (5-15); BUN 30 mg/dL (4-19); BUN/Creat Ratio 63.5 RATIO (10-20); Calcium,Total 9.2 mg/dL (7.6-11.0); Carbon Dioxide 28.7 mmol/L (21.0-32.0); Chloride 101 mmol/L (98-108); Creatinine, Serum 0.47 mg/dL (0.70-1.20); EST Glomerular Filtration Rate 103 (>60); Estimated Creatinine Clearance 78.56 ml/min (50-250); Globulin 3.2 g/dL (2.2-4.2); Glucose 85 mg/dL (70-99); Potassium 3.4 mmol/L (3.3-5.1); Protein, Total 6.2 g/dL (5.9-8.4); Sodium Level 140 mmol/L (133-145); Total Bilirubin 0.28 mg/dL (0.00-1.30)
--- NOTE | 2025-02-20 09:18 | CASEMGMT ---
Updates sent to [facility] with request that precert be submitted. Judith Sanders DC Planning Asst
[2025-02-20] MEDS: dexAMETHasone 10 MG/ML Vial 6 MG IV (10:21)
[2025-02-20] MEDS: amLODIPine 10 MG Tablet PO (10:22)
[2025-02-20] MEDS: Enoxaparin 40 MG/0.4 ML Syringe SC (10:22)
--- NOTE | 2025-02-20 10:37 | PN.HOSP_ITS ---
Subjective Subjective Seems more alert today, she is sitting in the chair to eat breakfast. She still got the year wrong but at least today she answered it and was quicker about it than she has been the other days Objective Data Objective Data Vital Signs: Vital Signs Temp Pulse Resp BP Pulse Ox O2 Del Method O2 Flow Rate 98.2 F 76 18 147/84 H 98 Room Air 2 02/20/25 08:31 02/20/25 08:31 02/20/25 08:31 02/20/25 08:31 02/20/25 08:31 02/20/25 08:32 02/19/25 20:26 Oxygen Flow Rate (L/min) 2 Oxygen Delivery Method Room Air Weight: 232 lb 5.875 oz Body Mass Index (BMI) 38.9 Intake & Output: Intake and Output for Last 24 Hours 02/19/25 02/20/25 02/21/25 03:59 03:59 03:59 Intake Total 480 / 480 60 / 60 Output Total 600 / 600 700 / 700 250 / 250 Balance -120 / -120 -640 / -640 -250 / -250 Lab / Micro Data 02/19/25 05:27 02/20/25 06:16 Labs: Laboratory Results - last 24 hr 02/20/25 06:16: Sodium 140, Potassium 3.4, Chloride 101, Carbon Dioxide 28.7, Anion Gap 11, BUN 30 H, Creatinine 0.47 L, Estim Creat Clear Calc 78.56, Est GFR (MDRD) Non-Af 103, BUN/Creatinine Ratio 63.5 H, Glucose 85, Calcium 9.2, Total Bilirubin 0.28, AST 28, ALT 10, Alkaline Phosphatase 63, Total Protein 6.2, A lbumin 3.0 L, Globulin 3.2, Albumin/Globulin Ratio 1.0 Micro: Microbiology 02/14/25 12:09 Mucosa - Nose SARS-CoV-2, Influenza & RSV (PCR) - Final SARS-CoV-2 (COVID 19 PCR) Physical Exam Narrative General: Alert, Oriented x2, Cooperative, No apparent distress HEENT: Atraumatic, PERRLA, EOMI, Normocephalic Oral: Moist Mucosa Neck: Supple, No JVD Lungs: Diminished, Normal air movement, No rhonchi, No wheeze, No rales Cardiovascular: Regular rate, Regular Rhythm, Normal S1, Normal S2, No murmurs Abdomen: Soft, Non Tender, Non-Distended, No Hepato-splenomegaly Extremities: No edema, Capillary Refill Less than 3 Seconds Skin: No rashes, No breakdown Musculoskeletal: No Tenderness to Palpation of Joints or Extremities Neurological: No focal neurological deficits, moves all extremities Psych/Mental Status: Flat Assessment & Plan Assessment/Plan (1) COVID: PLAN: Plan 1. Acute encephalopathy secondary to hyperammonemia potentially due to her Depakote versus COVID/seizure disorder ? Appreciate neurology's assistance ? EEG is unremarkable ? She does have COVID and now has low pO2 on ABG. Continue with Decadron ? Continue with lactulose, her ammonia improved from 101 to 39 ? MRI of the brain with CTA of the head and neck is normal, discussed with neurology who felt that this is likely COVID induced and did not think an LP would add much. She is improved today ? No further episodes of vomiting 2. Hyperlipidemia with a history of CVA ? Continue with aspirin and Crestor ? Stable DVT: Lovenox Charges/Coding Visit Charges Inpatient E&M: 83770 Subs Hosp L2
--- NOTE | 2025-02-20 13:04 | NEURO.CONS ---
HPI Consult Data Date of Consult: 02/20/25 HPI Narrative HPI Narrative: RICHAR BELTRAN, is a 70 F who presents [facility] Medical History Seizures Stroke/cerebrovascular accident Sleep apnea Home Medications ?Medication ?Instructions ?Recorded ?Last Taken ?Type divalproex 500 mg tablet,extended 1,000 mg PO BID 05/01/17 02/14/25 History release 24 hr oxcarbazepine 600 mg tablet 900 mg PO BID 05/01/17 02/14/25 History (Trileptal) aspirin 81 mg chewable tablet 1 tab PO DAILY 07/08/23 02/14/25 History (Nazia Chewable Low Dose Aspirin) rosuvastatin 10 mg tablet 10 mg PO QHS 07/08/23 02/13/25 History Allergy/AdvReac Type Severity Reaction Status Date / Time No Known Allergies Allergy Verified 02/14/25 12:23 Social History (Updated 02/14/25 @ 11:46 by Clarice Bass) household members: spouse housing: house Smoking Status: Never smoker Vital Signs Vital Signs Vital Signs: 02/19/25 13:21 02/19/25 13:35 02/19/25 13:46 Temperature 97.6 F L Temperature Source Temporal Pulse Rate 68 87 Pulse Strength Respiratory Rate 17 16 Respiratory Effort Respiratory Depth Respiratory Pattern Normal Blood Pressure 132/65 H Blood Pressure Mean 87 Blood Pressure Source Monitor Blood Pressure Position Semi-Fowlers Blood Pressure Location Left Forearm Pulse Ox 98 Oxygen Delivery Method Nasal Cannula Oxygen Flow Rate (L/min) 2 2 02/19/25 15:00 02/19/25 20:16 02/19/25 20:26 Temperature 97.9 F Temperature Source Oral Pulse Rate 83 Pulse Strength Respiratory Rate 18 Respiratory Effort Normal Non-Labored Normal Non-Labored Respiratory Depth Normal Normal Respiratory Pattern Normal Normal Blood Pressure 151/84 H Blood Pressure Mean 106 Blood Pressure Source Monitor Blood Pressure Position Semi-Fowlers Blood Pressure Location Left Forearm Pulse Ox 96 100 Oxygen Delivery Method Nasal Cannula Nasal Cannula Nasal Cannula Oxygen Flow Rate (L/min) 2 2 2 02/19/25 20:32 02/19/25 22:45 02/20/25 02:15 Temperature 97.3 F L Temperature Source Temporal Pulse Rate 85 73 Pulse Strength Weak (1+) Respiratory Rate 18 18 Respiratory Effort Respiratory Depth Respiratory Pattern Blood Pressure 144/76 H Blood Pressure Mean 98 Blood Pressure Source Blood Pressure Position Blood Pressure Location Pulse Ox 99 96 Oxygen Delivery Method Room Air Room Air Oxygen Flow Rate (L/min) 02/20/25 02:15 02/20/25 05:19 02/20/25 05:19 Temperature 97.0 F L Temperature Source Temporal Pulse Rate 74 74 Pulse Strength Respiratory Rate 18 Respiratory Effort Normal Non-Labored Respiratory Depth Normal Respiratory Pattern Normal Blood Pressure 172/73 H 172/73 H Blood Pressure Mean 106 Blood Pressure Source Blood Pressure Position Blood Pressure Location Pulse Ox 96 96 Oxygen Delivery Method Room Air Room Air Oxygen Flow Rate (L/min) 02/20/25 06:28 02/20/25 07:29 02/20/25 07:29 Temperature Temperature Source Pulse Rate 79 64 Pulse Strength Respiratory Rate 18 16 Respiratory Effort Respiratory Depth Respiratory Pattern Normal Blood Pressure 153/52 H Blood Pressure Mean 85 Blood Pressure Source Blood Pressure Position Blood Pressure Location Pulse Ox 97 93 Oxygen Delivery Method Room Air Room Air Oxygen Flow Rate (L/min) 02/20/25 08:31 02/20/25 08:32 Temperature 98.2 F Temperature Source Oral Pulse Rate 76 Pulse Strength Respiratory Rate 18 Respiratory Effort Normal Non-Labored Respiratory Depth Normal Respiratory Pattern Normal Blood Pressure 147/84 H Blood Pressure Mean 105 Blood Pressure Source Monitor Blood Pressure Position Semi-Fowlers Blood Pressure Location Left Arm Pulse Ox 98 Oxygen Delivery Method Room Air Room Air Oxygen Flow Rate (L/min) Weight Weight: 105.4 kg Body Mass Index (BMI) 38.9 EEG Results Procedure Details EEG Procedure Details: RICHAR BELTRAN is a 70 year old F with a past medical history of , who presents for evaluation of Electroencephalogram on DATE at TIME Lab / Micro Data 02/19/25 05:27 02/20/25 06:16 Labs: Laboratory Results - last 24 hr 02/20/25 06:16: Sodium 140, Potassium 3.4, Chloride 101, Carbon Dioxide 28.7, Anion Gap 11, BUN 30 H, Creatinine 0.47 L, Estim Creat Clear Calc 78.56, Est GFR (MDRD) Non-Af 103, BUN/Creatinine Ratio 63.5 H, Glucose 85, Calcium 9.2, Total Bilirubin 0.28, AST 28, ALT 10, Alkaline Phosphatase 63, Total Protein 6.2, Albumin 3.0 L, Globulin 3.2, Albumin/Globulin Ratio 1.0 Active Medications Active Medications Active Medications: Current Medications Generic Name Dose Route Start Last Admin Trade Name Freq PRN Reason Stop Dose Admin Acetaminophen 650 mg 02/14/25 13:49 02/19/25 01:53 Acetaminophen 325 Mg Tablet PO 650 mg Q6H PRN PRN Administration Pain 1-10 Or Fever >100.7 Albuterol/Ipratropium 3 ml 02/14/25 13:49 02/20/25 07:29 Ipratropium/Albuterol Sulfate 3 Ml Ampul.Neb INHALATION 3 ml Q6H.RT RHETT Administration Amlodipine Besylate 10 mg 02/16/25 10:00 02/20/25 10:22 Amlodipine 10 Mg Tablet PO 10 mg DAILY RHETT Administration Protocol Atorvastatin Calcium 20 mg 02/14/25 22:00 02/19/25 20:26 Atorvastatin Calcium 20 Mg Tablet PO 20 mg QHS RHETT Administration Dexamethasone Sodium Phosphate 6 mg 02/17/25 15:00 02/20/25 10:21 Dexamethasone 10 Mg/Ml Vial IV 02/26/25 10:01 6 mg DAILY RHETT Administration Divalproex Sodium 1,000 mg 02/14/25 17:00 02/20/25 05:04 Divalproex (Er) 500 Mg Tablet PO 1,000 mg BID@0500,1700 RHETT Administration Enoxaparin Sodium 40 mg 02/15/25 10:00 02/20/25 10:22 Enoxaparin 40 Mg/0.4 Ml Syringe SC 40 mg DAILY RHETT Administration Hydralazine HCl 10 mg 02/15/25 00:01 02/20/25 05:19 Hydralazine 20 Mg/Ml Vial IV 10 mg Q4H PRN PRN Administration SBP > 160 Protocol Sodium Chloride 100 mls @ 15 mls/hr 02/14/25 16:13 IV .Q6H40M PRN Saline Flush Sodium Chloride 100 mls @ 15 mls/hr 02/14/25 16:13 IV .Q6H40M PRN Additional IVPB Infusion Lactulose 20 gm 02/15/25 17:15 02/20/25 05:04 Lactulose 20 Gm/30 Ml Udc PO 20 gm TID RHETT Administration Nitroglycerin 0.4 mg 02/14/25 13:49 Nitroglycerin (Inpatient Use) 0.4 Mg Tab.Subl SL Q5M PRN CARDIAC/CHEST PAIN Ondansetron HCl 4 mg 02/14/25 13:49 Ondansetron 4 Mg/2 Ml Vial IV Q8H PRN PRN NAUSEA/VOMITING Oxcarbazepine 900 mg 02/14/25 17:00 02/20/25 05:04 Oxcarbazepine 300 Mg Tablet PO 900 mg BID@0500,1700 RHETT Administration Oxycodone HCl 2.5 - 5 mg 02/14/25 13:49 Oxycodone 5 Mg Tablet PO Q4H PRN PRN Pain Score 4-10 Sodium Chloride 10 - 40 ml 02/14/25 16:13 02/20/25 10:25 0.9% Saline Lock 10 Ml Syringe IV 10 ml UD PRN Administration SALINE FLUSH
--- NOTE | 2025-02-20 13:08 | PN.NEURO_ITS ---
Assessment and Plan: Neuro Assessment/Plan 70 yo woman with stroke, seizures (on oxcarb 900 BID, and VPA 100 BID), presenting with confusion in the setting of COVID infection. Exam non-focal but concerning for significant waxing and waning. Ammonia 101 trended down to 39 after starting lactulose. Unsure of etioloyg of hyperammonemia, could be related to VPA, hwoever she has been on it for years and seizures free. she has been seizures free for years on VPA dosing. MRI brain negative EEG with mild encephalopathy, no epileptiform discharges At baseline, she can take the walker, walk around the house, goes to the restroom on her own, clean herself, can feed herself, carry on a conversation. She can operate a TV remote Clinically she is more alert, says she is the best she has been. However, continues to have some waxing and waning, but she has been trending up over all. Though she is not back to her baseline yet, however continuous improvement since admission is reassuring. I would expect her to take sometime to recover form this whole illness given baseline is not 100% and poor cognitive reserve. #Toxic metabolic encephalopathy in the setting of COVID infection, and hyperammonemia Given some cognitive impairment at baseline, it may take her longer to recover from acute illness Delirium precautions #Hyperammonemia Regarding hyperammonemia, risk factors include VPA and underlying infection. Given she has been on VPA for a long time and seizures free, I think it would be reasonable to keep the dose as is for now, and re check ammonia level as COVID infection resolves. If remain elevated and symptomatic then, can consider lowering the dose or switching to a alternative medication. Start Levocarnitine supplementation Will sign off at this time. Please contact with questions I personally attended this patient and spent a total time of 35 minutes evaluating this patient including clinical assessment, review of chart, medical history imaging, and determining appropriate treatment and workup. Subject: Neurology Subjective She is more alert today, seems to be better, still waxes and wanes a little. She was able to hold her sandwich and feed herself today, which she wasn't able to do before. At baseline, she can take the walker, walk around the house, goes to the restroom on her own, clean herself, can feed herself, carry on a conversation. She can operate a TV remote EEG Results Procedure Details EEG Procedure Details: RICHAR BELTRAN is a 70 year old F with a past medical history of , who presents for evaluation of Electroencephalogram on DATE at TIME Objective Data Objective Data Vital Signs: Vital Signs Temp Pulse Resp BP Pulse Ox O2 Del Method O2 Flow Rate 98.2 F 76 18 147/84 H 98 Room Air 2 02/20/25 08:31 02/20/25 08:31 02/20/25 08:31 02/20/25 08:31 02/20/25 08:31 02/20/25 08:32 02/19/25 20:26 Oxygen Flow Rate (L/min) 2 Oxygen Delivery Method Room Air Weight: 105.4 kg Body Mass Index (BMI) 38.9 Intake & Output: Intake and Output for Last 24 Hours 02/18/25 02/19/25 02/20/25 23:59 23:59 23:59 Intake Total 480 / 480 180 / 180 Output Total 350 / 350 650 / 650 550 / 550 Balance 130 / 130 -470 / -470 -550 / -550 Lab / Micro Data 02/19/25 05:27 02/20/25 06:16 Labs: Laboratory Results - last 24 hr 02/20/25 06:16: Sodium 140, Potassium 3.4, Chloride 101, Carbon Dioxide 28.7, Anion Gap 11, BUN 30 H, Creatinine 0.47 L, Estim Creat Clear Calc 78.56, Est GFR (MDRD) Non-Af 103, BUN/Creatinine Ratio 63.5 H, Glucose 85, Calcium 9.2, Total Bilirubin 0.28, AST 28, ALT 10, Alkaline Phosphatase 63, Total Protein 6.2, A lbumin 3.0 L, Globulin 3.2, Albumin/Globulin Ratio 1.0 Micro: Microbiology 02/14/25 12:09 Mucosa - Nose SARS-CoV-2, Influenza & RSV (PCR) - Final SARS-CoV-2 (COVID 19 PCR) Physical Exam Narrative Alert, interactive, gets fixated on things, oriented to self, place, not year. Remembers having seen my before, and reports she saw me yesterday which is correct. All extremities antigravity.
[2025-02-20] MEDS: Atorvastatin Calcium 20 MG Tablet PO (21:50)
[2025-02-21 02:20] VITALS: BP 149/64; PULSE 75; RESP 16; TEMP 36.2; O2SAT 97
[2025-02-21 05:40] VITALS: BP 149/73; PULSE 63; RESP 16; TEMP 36.3; O2SAT 98
[2025-02-21] MEDS: Divalproex (ER) 500 MG Tablet 1000 MG PO (05:45)
[2025-02-21] MEDS: Lactulose 20 GM/30 ML UDC PO ×2 (05:45→13:29)
[2025-02-21] MEDS: OXcarbazepine 300 MG Tablet 900 MG PO (05:45)
[2025-02-21 07:18] VITALS: O2SAT 96
--- NOTE | 2025-02-21 07:40 | CASEMGMT ---
Patient was approved to go to [place]. SW will notify physician. Lucrecia Martins OPERATOR ASSISTANT I CEMENTING ANGEL
--- NOTE | 2025-02-21 08:01 | CASEMGMT ---
PAUL has obtained auth to admit. Judith Sanders DC Planning Asst.
[2025-02-21 09:00] VITALS: BP 152/70; PULSE 70; RESP 16; TEMP 37; O2SAT 96
[2025-02-21] MEDS: Enoxaparin 40 MG/0.4 ML Syringe SC (10:32)
[2025-02-21] MEDS: amLODIPine 10 MG Tablet PO (10:32)
--- NOTE | 2025-02-21 10:32 | TREXTCAR_ITS ---
Diet Diet Order/Speech Therapy: 02/18/25 14:54 Diet: Cardiac - Heart Healthy Routine Orders/Code Status Routine Lab Work: CBC and BMP Code Status: Full Code DC O2, CPAP, BIPAP needs Home O2 Discharge instructions: No Therapies Physical Therapy: Eval and Treat Occupational Therapy: Eval and Treat Problem/Diagnosis (1) COVID: Status: Acute Code(s): U07.1 - COVID-19 Plan 1. Acute encephalopathy secondary to hyperammonemia potentially due to her Depakote versus COVID/seizure disorder ? Appreciate neurology's assistance ? EEG is unremarkable ? She does have COVID and now has low pO2 on ABG. Continue with Decadron ? Continue with lactulose, her ammonia improved from 101 to 39 ? MRI of the brain with CTA of the head and neck is normal, discussed with chyna herreraognavarro who felt that this is likely COVID induced and did not think an LP would add much. She is improved today ? No further episodes of vomiting 2. Hyperlipidemia with a history of CVA ? Continue with aspirin and Crestor ? Stable DVT: Lovenox Allergies/Procedures Done in Hospital Allergies No Known Allergies Allergy (Verified 02/14/25 12:23) Procedures: None Type of Care/Length of Stay Estimated LOS: Convalescent Care Less Than 30 days Type of Care Needed: Skilled Rehab Potential: Good Prognosis: Good Additional Orders/Day of Discharge Day of Discharge: 02/21/25 Dietary and Speech Recommendations Dietitian Recommendations/Changes: Adjust to cardiac diet to manage medical conditions. Will monitor weight trends. Speech Linguistic Eval Summary: Patient completed 12 years of education. She was a housewife. Per report, she had deficits from previous CVAs and required assistance w/ medication management, finance management, cooking, and shower transfers; however, prior to yesterday the patient was fully conversive w/ concerns for mild memory difficulty. Her current cognitive status is very different than her baseline per report. Yesterday, the patient began having difficulty following simple commands and had much confusion, so he brought her to the ED. BUSINESS AFFAIRS MANAGER attempted administering the [place] Cognitive Examination (GENESIS-III) today; however, the test appeared to be too challenging and pt appeared to be fatiguing as the evaluation continued, so informal assessment was completed. Orientation - (GENESIS-III Orientation Questions) Pt oriented to self and . Pt not oriented to date, season, place, state, or country. She was able to orient to state w/ field of 2 choices presented verbally. Recall - (GENESIS-III 3-word list) Immediate recall 1/3 w/ 3 repetitions. Auditory Comprehension - Following 1-step oral mech commands 3/5 acc. Following 1-step commands (other, e.g. raise hand, wiggle toes) - 4/5 acc. Verbal Expression - Confrontation naming (GENESIS-III pictures) - 2/5 w/ 1 self- correction. Confrontation naming of objects in the room 5/10 acc, increasing to 8/10 w/ moderate verbal and phrase completion cues. Patient presented w/ semantic paraphasias. Repetition of single words (2-3 syllables) - 5/5 acc. Repetition of single words (GENESIS-III, 4-6 syllables) - 1/4 acc. Repetition of sentences (GENESIS-III) - 0/2acc. 2-min conversational sample - Slowed rate of speech (16wpm), continued prompting by BUSINESS AFFAIRS MANAGER to elicit conversational responses, 2-6 word responses w/ long delay (20-30 seconds after BUSINESS AFFAIRS MANAGER prompting conversation). The patient is presenting w/ moderate-severe cognitive-communication deficit. Goals added to POC to address deficits in orientation, comprehension, and verbal expression. Will recommend continued cognitive-linguistic assessment during POC to set additional goals as needed. Discharge Plan Admission Admit Date/Time: 02/16/25 15:49 Attending Provider: Mario Obando Primary Care Provider: Red Peterson Consulting Providers: Anabell Baum Discharge Orders/Prescriptions Prescriptions: New amlodipine 10 mg Tablet 10 mg PO DAILY Qty: 0 0RF dexamethasone 6 mg tablet 6 mg PO DAILY Qty: 5 0RF Continued divalproex 500 MG tablet extended release 24 hr 1,000 mg PO BID Rx Instructions: takes at 0500 and 1700 every day oxcarbazepine [Trileptal] 600 MG tablet 900 mg PO BID Rx Instructions: takes at 0500 and 1700 every day rosuvastatin 10 mg tablet 10 mg PO QHS aspirin [Nazia Chewable Aspirin] 81 mg tablet,chewable 1 tab PO DAILY Referrals / Follow Up: Red Peterson MD [Primary Care Provider] - Disposition Disposition (needs filled in before D/C Order can be placed[facility]
[2025-02-21] MEDS: dexAMETHasone 10 MG/ML Vial 6 MG IV (11:06)
[2025-02-21] MEDS: 0.9% Saline Lock 10 ML Syringe IV (11:07)
--- NOTE | 2025-02-21 11:34 | CASEMGMT ---
Patient is ready for discharge to [place]. SW completed a 7000 in [facility] system. Physicians will transport patient. Plan: d/c to [place] under skilled level of care on a convalescent stay. Physicians will transport patient via wheelchair van. Lucrecia ORTIZ
--- NOTE | 2025-02-21 11:42 | PCM.DC.SUM ---
Providers Date of Admission: 02/16/25 Primary Care Physician: Dr. Red Peterson MD Reason For Visit: ACUTE ENCEPHALOPATHY, COVID Diagnosis Discharge Diagnosis (1) COVID: Status: Acute Code(s): U07.1 - COVID-19 Plan 1. Acute encephalopathy secondary to hyperammonemia potentially due to her Depakote versus COVID/seizure disorder ? Appreciate neurology's assistance ? EEG is unremarkable ? She does have COVID and now has low pO2 on ABG. Continue with Decadron ? Continue with lactulose, her ammonia improved from 101 to 39 ? MRI of the brain with CTA of the head and neck is normal, discussed with neurology who felt that this is likely COVID induced and did not think an LP would add much. She is improved today ? No further episodes of vomiting 2. Hyperlipidemia with a history of CVA ? Continue with aspirin and Crestor ? Stable DVT: Lovenox Medications at Discharge Home Medications divalproex 500 mg tablet,extended release 24 hr 1,000 mg PO BID 05/01/17 oxcarbazepine 600 mg tablet (Trileptal) 900 mg PO BID 05/01/17 aspirin 81 mg chewable tablet (Nazia Chewable Low Dose Aspirin) 1 tab PO DAILY 07/08/23 rosuvastatin 10 mg tablet 10 mg PO QHS 07/08/23 amlodipine 10 mg tablet 10 mg PO DAILY #0 tabs 02/21/25 dexamethasone 6 mg tablet 6 mg PO DAILY #5 tabs 02/21/25 Hospital Course Operations None Procedures Electroencephalogram Summary of Care Provided Minutes Spent on Discharge: 36 Hospital Course: Per HPI: RICHAR BELTRAN, is a 70 F with a past medical history as outlined living seizure disorder was admitted through the ED on 02/14/2025 with complaint of altered mental status. According to her she was well until this morning when he found her confused right after she ate breakfast. He had not noticed that she had any seizure episodes. He had not seen her have any recent symptoms and denied any fever or chills, cough, shortness of breath, nausea or vomiting. Review of systems otherwise negative. Could not get much history from the patient due to the altered mental status. Vitals in the ED were blood pressure 140/50, pulse rate of 77, respiratory rate of 15 and temperature of 99.3 Fahrenheit. Oxygen saturation was 94% on room air. CBC showed WBC of 8.1 with hemoglobin of 4.6 and platelets of 347. Chemistry was largely unremarkable apart from lactic acid of 2.7. Creatinine was 0.5. Chest x-ray showed no acute cardiopulmonary pathology. Urinalysis showed no evidence of UTI. CT of the brain showed no acute intracranial pathology and showed chronic evidence of mild cerebral atrophy and atrophy of the left cerebellum as well as stable encephalomalacia in the posterior left parietal occipital lobes. She has been admitted to be managed for acute encephalopathy likely due to COVID. She did test positive for COVID. Hospital Course: 1. Acute metabolic encephalopathy secondary to COVID in the setting of a seizure disorder/hyperammonemia due to Depakote?70-year-old female presented to hospital for altered mental status. Initially was thought to be due to hyperammonemia due to Depakote and was started on lactulose. She has normal liver function and her ammonia level improved to normal however her altered mental status continued. She did become more alert but was started on Decadron secondary to a transient hypoxia here in the hospital. She is not in respiratory failure she just had insufficiency and currently is back to room air. She is on day 5 of Decadron she needs another 5 days on discharge at the senior care. The EEG that was done was unremarkable and I discussed the case thoroughly with neurology who felt that this still could all be due to COVID and did not feel that her history or exam warranted a lumbar puncture. I discussed the possibility for discharge today with her who expressed understanding of the risks and benefits of going to the senior care and he would like for her to go today. Will continue with all of her seizure medications and place her on Decadron 6 mg p.o. daily for 5 more days. 2. Essential hypertension, hyperlipidemia are all chronic medical conditions which complicate her care. Her home medications were continued where appropriate Physical Exam Narrative General: Alert, Oriented x2, Cooperative, No apparent distress HEENT: Atraumatic, PERRLA, EOMI, Normocephalic Oral: Moist Mucosa Neck: Supple, No JVD Lungs: Diminished, Normal air movement, No rhonchi, No wheeze, No rales Cardiovascular: Regular rate, Regular Rhythm, Normal S1, Normal S2, No murmurs Abdomen: Soft, Non Tender, Non-Distended, No Hepato-splenomegaly Extremities: No edema, Capillary Refill Less than 3 Seconds Skin: No rashes, No breakdown Musculoskeletal: No Tenderness to Palpation of Joints or Extremities Neurological: No focal neurological deficits, moves all extremities Psych/Mental Status: Flat though more interactive than on admission Weight / BMI Weight Weight: 232 lb 5.875 oz Body Mass Index (BMI) 38.9 ABG / Lab / Microbiology Data 02/19/25 05:27 02/20/25 06:16 Microbiology: Microbiology 02/14/25 12:09 Mucosa - Nose SARS-CoV-2, Influenza & RSV (PCR) - Final SARS-CoV-2 (COVID 19 PCR) D/C Instructions DC O2, CPAP, BIPAP Needs Home O2 Discharge instructions: No Meaningful Use Info Meaningful Use Meaningful Use Diagnoses (Choose all that apply): None applicable Ischemic Stroke Statin Dosing Therapy Reference: STATIN DOSE THERAPY REFERENCE: * Patients > 75 years receive moderate or high dose statin therapy. * Patients 75 years or YOUNGER should receive HIGH intensity statin dose unless contraindicated. You will be required to document reason for non-treatment if statin daily dose does not meet guidelines. HIGH DOSE STATIN THERAPY DAILY Atorvastatin > than or = to 40 mg Rosuvastatin > than or = to 20 mg Amlodipine + Atorvastatin > than or = to 2.5/40 mg Ezetimibe + Simvastatin 10/80 mg Simvastatin 80mg Discharge Plan Admission Admit Date/Time: 02/16/25 15:49 Attending Provider: Mario Obando Primary Care Provider: Red Peterson Consulting Providers: Anabell Baum Discharge Orders/Prescriptions Prescriptions: New amlodipine 10 mg Tablet 10 mg PO DAILY Qty: 0 0RF dexamethasone 6 mg tablet 6 mg PO DAILY Qty: 5 0RF Continued divalproex 500 MG tablet extended release 24 hr 1,000 mg PO BID Rx Instructions: takes at 0500 and 1700 every day oxcarbazepine [Trileptal] 600 MG tablet 900 mg PO BID Rx Instructions: takes at 0500 and 1700 every day rosuvastatin 10 mg tablet 10 mg PO QHS aspirin [Nazia Chewable Aspirin] 81 mg tablet,chewable 1 tab PO DAILY Referrals / Follow Up: Red Peterson MD [Primary Care Provider] - Disposition Disposition (needs filled in before D/C Order can be placed): [facility] Charges/Coding Visit Charges Inpatient E&M: 25000 Disch Hosp >30min
--- NOTE | 2025-02-21 11:49 | CASEMGMT ---
Discharge Planning Discharge orders, signed med list, and transport time sent to [facility]. Physicians will transport pt by wheelchair at 3p. Nursing, SW, pt, and her updated. Judith Sanders DC Planning Asst.
--- NOTE | 2025-02-21 12:08 | PHA.DC.MR.R ---
Pharmacy [place] Med Reconciliation Pharmacy Service has performed discharge medication reconciliation for this patient upon tranfer to SNF. The patient's discharge medication list was reviewed for discrepancies and discrepancies were resolved. Medications at Discharge Home Medications divalproex 500 mg tablet,extended release 24 hr 1,000 mg PO BID 05/01/17 oxcarbazepine 600 mg tablet (Trileptal) 900 mg PO BID 05/01/17 aspirin 81 mg chewable tablet (Nazia Chewable Low Dose Aspirin) 1 tab PO DAILY 07/08/23 rosuvastatin 10 mg tablet 10 mg PO QHS 07/08/23 amlodipine 10 mg tablet 10 mg PO DAILY #0 tabs 02/21/25 dexamethasone 6 mg tablet 6 mg PO DAILY #5 tabs 02/21/25
--- NOTE | 2025-02-21 12:39 | NURSING ---
Report called to [facility]
[2025-02-21 13:33] VITALS: BP 136/70; PULSE 80; RESP 17; TEMP 36.6; O2SAT 100
== END 2025-02-21 15:43 | disposition skilled nursing facility (03) | DRG 177 ==
LOC: ED 13:15 → MS3 15:46 → PCU 16:26
PROVIDERS: Admitting Provider Student in an Organized Health Care Education/Training Program; Emergency Provider Emergency Medicine; PCP Family Medicine; Referring Provider Emergency Medicine; Visit Provider Family Medicine
DX: U07.1 COVID-19 (principal); G92.8 Other toxic encephalopathy; E72.20 Disorder of urea cycle metabolism, unspecified; D68.8 Other specified coagulation defects; E87.20 Acidosis, unspecified; G40.909 Epilepsy, unspecified, not intractable, without status epilepticus; I69.398 Other sequelae of cerebral infarction; E78.5 Hyperlipidemia, unspecified; Z79.01 Long term (current) use of anticoagulants; R09.02 Hypoxemia; Z79.02 Long term (current) use of antithrombotics/antiplatelets; Z79.899 Other long term (current) drug therapy; Z79.51 Long term (current) use of inhaled steroids; Z79.891 Long term (current) use of opiate analgesic; T42.6X5A Adverse effect of other antiepileptic and sedative-hypnotic drugs, initial encounter; R06.89 Other abnormalities of breathing; Z79.82 Long term (current) use of aspirin
CPT/HCPCS: 36415; 36600; 70450; 70496; 70498; 70553; 71045; 74018; 80048; 80053; 80061; 80076; 80164; 81001; 82140; 82803; 82962; 83605; 85025; 87631; 92507; 92523; 92526; 93005; 94640; 94762; 95819; 97110; 97116; 97129; 97162; 97166; 97530; 97535; 99285; A9575; Q9967; A4216